=== PATIENT | male | born 1950 | race Caucasian/White ===

== ENCOUNTER 2016-08-26 05:22 | Observation (INO) | payer OTHER ==
[2016-08-21 09:10] VITALS: BMI 29.0
--- NOTE | 2016-08-21 09:46 | PAT Medication Instructions ---
Service Date Aug 21, 2016. Current Home Medication List Amlodipine (Norvasc), 10 MG PO QAM Aspirin (Aspirin Chewable), 81 MG PO QAM Lisinopril/Hctz (Prinzide 20-25MG), 1 TAB PO QAM Lovastatin (Altoprev), 40 MG PO HS Metformin Hcl (Glucophage), 1,000 MG PO BID Nitroglycerin (Nitrostat), 0.4 MG UT PRN Omeprazole (Prilosec), 20 MG PO BID Tramadol (Ultram), 2 TAB PO QID PRN for Pain Medication Instructions For Your Scheduled Surgery - Check with surgeon/chief psychology for instructions: Aspirin (Aspirin Chewable), 81 MG PO QAM - Hold the following medications 48 hours prior to surgery: Metformin Hcl (Glucophage), 1,000 MG PO BID - Hold the following medications the morning of surgery: Lisinopril/Hctz (Prinzide 20-25MG), 1 TAB PO QAM - Take the following medications the morning of surgery with a sip of water: Omeprazole (Prilosec), 20 MG PO BID Nitroglycerin (Nitrostat), 0.4 MG UT PRN Amlodipine (Norvasc), 10 MG PO QAM Tramadol (Ultram), 2 TAB PO QID PRN for Pain (okay to take up to 4 hours prior to surgery if needed) - Take the following medications as scheduled the night before surgery: Nitroglycerin (Nitrostat), 0.4 MG UT PRN Lovastatin (Altoprev), 40 MG PO HS Tramadol (Ultram), 2 TAB PO QID PRN for Pain If you have any questions please call us at [phone] (Eleanor Santiago PA-C) or [phone] or [phone]
[2016-08-21 10:07] LABS: BASO % 0.6 %; BASO ABS # 0.04 K/uL (0-0.2); COMPLETE YES; HEMATOCRIT 41.3 % (42-52); LYMPH ABS # 2.43 K/uL (1.2-3.4); MEAN CELL VOLUME 82.8 fL (80-100); MEAN CORPUSCULAR HEMOGLOBIN 29.9 pg (25-34); MEAN CORPUSCULAR HGB CONC 36.1 g/dl (32-36); MEAN PLATELET VOLUME 11.3 fL (7.4-10.4); MONO % 9.2 %; NEUT % 54.2 %; PLATELET COUNT 229 K/uL (130-400); RED BLOOD COUNT 4.99 M/uL (4.7-6.1); WHITE BLOOD COUNT 7.15 K/uL (4.8-10.8)
--- NOTE | 2016-08-21 10:20 | DIAGNOSTIC IMAGING REPORT ---
CHEST PREADMISSION(PA/LAT) CLINICAL HISTORY: PAT preoperative evaluation COMPARISON STUDY: 12/09/2013 FINDINGS: The bones soft tissues and hemidiaphragms are normal. The cardiomediastinal silhouette is normal. The lungs are clear. The pulmonary vasculature is normal. IMPRESSION: Negative chest. Electronically signed by: Bashir Mullins M.D. 08/21/2016 10:19 AM Dictated Date/Time: 08/21/2016 10:18 AM
[2016-08-21 10:22] LABS: PROTHROMBIN TIME (PATIENT) 10.6 SECONDS (9.0-12.0)
--- NOTE | 2016-08-23 15:15 | HISTORY & PHYSICAL EXAMINATION ---
DATE OF ADMISSION: 08/26/2016 Spinal stenosis surgery with L4-L5 laminectomy. HISTORY OF PRESENT ILLNESS: [place] is a delightful patient, he is 65. He has neurogenic claudication. He has appropriate imaging. He has back, lower extremity difficulty, pain with ambulation, burning and associated nerves alleviated by rest, made worse with activity. No other red flags. He has had assortment of conservative measures for the difficulty. PAST MEDICAL HISTORY: Spine low back issues, acid reflux, hiatal hernia. No kidney, liver issues. No carcinoma. No COPD. SOCIAL HISTORY: A nonalcohol use, minimal tobacco. PAST SURGICAL HISTORY: Hand surgery x2, right shoulder surgery. ALLERGIES: FENTANYL. MEDICATIONS: Tramadol, lisinopril, metformin, lovastatin. REVIEW OF SYSTEMS: He denies any blurred vision, double vision, tinnitus, vertigo. Denies chest pain, orthopnea. Denies nausea, vomiting, urgency, frequency, dysuria. His major complaint is back and lower extremities. OBJECTIVE: GENERAL: He is alert, oriented, pleasant gentleman, mentation normal. VITAL SIGNS: Blood pressure 130/80, pulse of 80, respiratory rate 16, temperature 97.4. HEAD, EYES, EARS, NOSE, AND THROAT: Pupils react to light and accommodation. Ear, nose and throat clear. CARDIAC: Normal S1, S2, no S3. LUNGS: Clear to auscultation. No rales, rhonchi or wheezing. ABDOMEN: Soft and nontender. EXTREMITIES: Intact x4. He has some back and lower extremity difficulties. He has paresthesias. He has no true muscle weakness and no great gross motor deficit. He has slight gait abnormality. His images reviewed in detail. He has some stenosis of the spine L4-L5. He also has a disc protrusion at L4-L5. ASSESSMENT: Disc protrusion, stenosis lumbar spine. DISPOSITION: Surgery is going to involve L4-L5 discectomy and laminectomy. No fusion required. I believe this hospital stay will be approximately 24 hours to 30 hours.
[~2016-08-26] VITALS: Ht 177.8 cm; Wt 91.2 kg
[2016-08-26] VITALS (9 sets, daily range): BP systolic 118–165; BP diastolic 66–90; PULSE 67–96; TEMP 36.3–36.6; O2SAT 93–99; Ht 177.8 cm; Wt 91.2 kg
[~2016-08-26 05:22] MED LIST: AMLO-114 PO; ASPCH81X PO; LISI20TA55 PO; LOVA40TA55 PO; METF1000 PO; NITR0.4S UT; PRLSR20 PO; TRAM-10 PO
[2016-08-26] MEDS ORDERED: NSS 1000ML IV SCH (06:00)
[2016-08-26] MEDS ORDERED: CEFAZOLIN 2000 MG/60 ML D5W 60 ML IV SCH (06:00)
[2016-08-26] MEDS ORDERED: LACTATED RINGER'S 1000ML 1,000 ML IV SCH (06:00)
[2016-08-26] MEDS ORDERED: ROCURONIUM BROMIDE 10 MG/ML 5 ML VIAL ONE ×2 (06:25→08:00)
[2016-08-26] MEDS ORDERED: GLYCOPYRROLATE INJ 0.2 MG/ML VIAL ONE ×2 (06:25→08:38)
[2016-08-26] MEDS ORDERED: NEOSTIGMINE METHYLSULFATE 5 MG/5 ML SYR ONE (06:25)
[2016-08-26] MEDS ORDERED: DEXAMETHASONE SOD INJ 4 MG/ML VIAL ONE (06:25)
[2016-08-26] MEDS ORDERED: LIDOCAINE HCL 2% 2 ML VIAL (20MG/ML) ONE (06:25)
[2016-08-26] MEDS ORDERED: ONDANSETRON INJ 2 MG/ML 2 ML VIAL ONE (06:25)
[2016-08-26] MEDS ORDERED: PROPOFOL IV EMULSION 10 MG/ML 20 ML VIAL IV ONE (06:25)
[2016-08-26] MEDS ORDERED: FENTANYL CITRATE INJ 50 MCG/1 ML 2 ML VIAL ONE (06:26)
[2016-08-26] MEDS ORDERED: MIDAZOLAM HCL 1 MG/ML 2ML VIAL ONE (06:26)
[2016-08-26] MEDS ORDERED: THROMBIN FOR SOLN 20000 UNIT KIT ONE (06:56)
[2016-08-26] MEDS ORDERED: BUPIVACAINE/EPINEPHRINE 0.5% MPF 1:200,000 30 ML VIAL ONE (06:57)
[2016-08-26] MEDS ORDERED: GELATIN SPONGE SZ 100 ONE (06:57)
[2016-08-26] MEDS ORDERED: VANCOMYCIN HCL 1000MG/20ML VIAL ONE (06:58)
[2016-08-26] MEDS ORDERED: HYDROmorphone INJ 2 MG/ML SYR/VIAL ONE ×2 (07:05→07:50)
[2016-08-26] MEDS ORDERED: SODIUM CHLORIDE 0.9% INJ 10 ML VIAL ONE (07:05)
[2016-08-26] MEDS ORDERED: MEPERIDINE HCL 25 MG/ML CARP IV PRN (07:15)
[2016-08-26] MEDS ORDERED: MoRPHine SULFATE 10 MG/ML CARP/VIAL IV PRN (07:15)
[2016-08-26] MEDS ORDERED: ONDANSETRON INJ 2 MG/ML 2 ML VIAL IV PRN ×2 (07:15→09:15)
[2016-08-26] MEDS ORDERED: ATROPINE SULFATE 0.1 MG/ML 5ML SYR IV PRN (07:15)
[2016-08-26] MEDS ORDERED: PHENYLEPHRINE 100MCG/ML 5ML SYR IV PRN (07:15)
[2016-08-26] MEDS ORDERED: NALOXONE HCL 0.4 MG/1 ML VIAL/CARP IV PRN (07:15)
[2016-08-26] MEDS ORDERED: FLUMAZENIL 0.1 MG/1 ML 10 ML VIAL IV PRN (07:15)
[2016-08-26] MEDS ORDERED: EpHEDrine SULFATE INJ 50 MG/ML AMP IV PRN (07:15)
[2016-08-26] MEDS ORDERED: LABETALOL HCL IV 5 MG/ML 20ML IV PRN (07:15)
[2016-08-26] MEDS ORDERED: HYDROmorphone INJ 1 MG/ML SYR IV PRN (07:15)
--- NOTE | 2016-08-26 07:21 | History & Physical Bridge Note ---
H&P Re-Evaluation Bridge Note: I have examined the patient, reviewed the History & Physical and in the interval since the performance of the History & Physical I have noted the following changes of clinical significance: Removal of mole on skin. Brandon Hall
[2016-08-26] MEDS ORDERED: EpHEDrine SULFATE 50MG/5ML SYR ONE (08:10)
[2016-08-26] MEDS ORDERED: METOPROLOL TARTRATE 1 MG/ML VIAL ONE (08:21)
[2016-08-26] MEDS ORDERED: THROMBIN FOR SOLN 20000 UNIT KIT TOP ONE (08:39)
[2016-08-26] MEDS ORDERED: BACITRACIN 50000 UNIT VIAL IR ONE (08:39)
[2016-08-26] MEDS ORDERED: BUPIVACAINE/EPINEPHRINE 0.5% MPF 1:200,000 30 ML VIAL INJ ONE (08:39)
[2016-08-26] MEDS ORDERED: VANCOMYCIN HCL 1000MG/20ML VIAL TOP ONE (08:39)
--- NOTE | 2016-08-26 09:12 | [facility] Post Operative Brief Note ---
Immediate Operative Summary Operative Date Aug 26, 2016. Pre-Operative Diagnosis Disc protrusion, stenosis lumbar spine Post-Operative Diagnosis Disc protrusion, stenosis lumbar spine Procedure(s) Performed L4-L5 Laminectomy, Removal of skin mole Surgeon Dr. Hall Anatomy Teacher Surgeon(s) DELON Garcia Estimated Blood Loss 100ml Findings stenosis, mole Specimens none per surgeon Complication(s) None Disposition Recovery Room / PACU
[2016-08-26] MEDS ORDERED: ACETAMINOPHEN 325 MG TAB PO PRN (09:15)
[2016-08-26] MEDS ORDERED: NITROGLYCERIN 0.4 MG SL PER TAB CHARGE UT PRN (09:15)
[2016-08-26] MEDS ORDERED: HYDROmorphone INJ 2 MG/ML SYR/VIAL IV PRN (09:15)
[2016-08-26] MEDS ORDERED: METOCLOPRAMIDE HCL INJ 5 MG/ML 2 ML VIAL IV PRN (09:15)
[2016-08-26] MEDS ORDERED: OXYCODONE/ACETAMINOPHEN 5-325 TAB PO PRN (09:15)
[2016-08-26] MEDS ORDERED: PROMETHAZINE HCL INJ 12.5 MG in SODIUM CHLORIDE 0.9% 50ML 50 ML IV PRN (09:15)
[2016-08-26] MEDS ORDERED: LORAZEPAM INJ 1 MG in SYRINGE 0 ML IV PRN (09:15)
[2016-08-26] MEDS ORDERED: MAGNESIUM HYDROXIDE SUSP 30 ML UDC PO PRN (09:15)
[2016-08-26] MEDS ORDERED: LORAZEPAM 1 MG TAB PO PRN (09:15)
[2016-08-26] MEDS ORDERED: HYDROmorphone INJ 1 MG/ML SYR ONE (09:21)
--- NOTE | 2016-08-26 09:25 | OPERATIVE REPORT ---
DATE OF OPERATION: 08/26/2016 PREOPERATIVE DIAGNOSIS: Spinal stenosis, lumbar spine L4-L5. Also, a mole on his dorsal spine. POSTOPERATIVE DIAGNOSIS: Same. PROCEDURES: Include removal small mole dorsal spine and lumbar spine laminectomy, foraminotomy, partial facetectomy, decompression of the spine lamina 4 and 5. COMPLICATIONS: Zero. BLOOD LOSS: 100 mL SPECIMENS 0. Sponge and needle counts correct at the close of the procedure. DESCRIPTION OF PROCEDURE: The patient was taken to the operating room, a general intubated anesthetic provided to the patient, placed prone, scrubbed, prepped and draped sterile. We made a small elliptical incision over a small mole in the thoracic spine. No specimens obtained. This was irrigated and closed with 3-0 nylon suture. We then went to the lumbar spine, made a skin incision, fascial incision, put in deep self-retaining retractors, we used C-arm guidance to measure the area. We decompressed the spine, L4-L5, foraminotomies, partial facetectomies. Moved a lot of ligamentum flavum, hypertrophy. We then completed. I was pleased with the freedom of the nerve roots. We irrigated and closed with Vicryl suture, 3-0 on the skin, sterile dressing applied. Also closed over vancomycin powder and a Hemovac drain. Sterile dressings applied. The patient returned to PACU stable. No complications. BLOOD LOSS: 100 mL I attest to the content of the Intraoperative Record and any orders documented therein. Any exceptio ns are noted below.
--- NOTE | 2016-08-26 09:35 | DIAGNOSTIC IMAGING REPORT ---
INTRAOPERATIVE RADIOGRAPH CLINICAL HISTORY: L4-L5 laminectomy. Fluoroscopy time: 1 seconds. FINDINGS: A single spot fluoroscopic view of the lower lumbar spine is presented. A surgical probe projects posteriorly at the level of L5. IMPRESSION: Intraoperative image of the lower lumbar spine as above. See operative report for detailed findings. Electronically signed by: Evelio Wilkerson M.D. 08/26/2016 9:34 AM Dictated Date/Time: 08/26/2016 9:33 AM
--- NOTE | 2016-08-26 09:53 | Anesthesiology Progress Note ---
Anesthesia Post Op Note Date & Time Aug 26, 2016 at 09:53 Vital Signs Pain Intensity: 3 Vital Signs Past 12 Hours Date Time Temp Pulse Resp B/P Pulse Ox O2 Delivery O2 Flow Rate FiO2 08/26/16 09:40 36.3 83 14 109/71 99 Nasal Cannula 2 08/26/16 09:30 78 20 126/79 99 Nasal Cannula 4 08/26/16 09:20 77 21 111/65 98 Nasal Cannula 4 08/26/16 09:10 36.4 96 16 145/79 98 Mask 10 08/26/16 05:48 36.6 71 20 131/88 96 Room Air Notes Mental Status: alert / awake / arousable, participated in evaluation Pt Amnestic to Procedure: Yes Nausea / Vomiting: adequately controlled Pain: adequately controlled Airway Patency, RR, SpO2: stable & adequate BP & HR: stable & adequate Hydration State: stable & adequate Anesthetic Complications: no major complications apparent
[2016-08-26] MEDS ORDERED: IV FLUIDS COMPLETED PRN (10:30)
[2016-08-26] MEDS: KETOROLAC TROMETHAMINE 15 MG/ML VIAL IV. SCH ×2 (11:27→17:45)
[2016-08-26] MEDS: SODIUM CHLORIDE 0.9% 1000ML 1,000 ML IV SCH (11:28)
[2016-08-26] MEDS: OXYCODONE/ACETAMINOPHEN 5-325 TAB PO PRN (13:34)
[2016-08-26] MEDS: CEFAZOLIN IV 2,000 MG in DEXTROSE 5% 50ML 50 ML IV SCH (15:22)
[2016-08-26] MEDS: HYDROmorphone INJ 1 MG/ML SYR IV PRN ×2 (15:23→20:44)
[2016-08-26] MEDS: PANTOprazole SOD 40 MG TAB PO SCH (20:38)
[2016-08-26] MEDS ORDERED: LOVASTATIN 20 MG TAB PO SCH (21:00)
[2016-08-27] VITALS: BP 119/67; PULSE 90
[2016-08-27] MEDS: SODIUM CHLORIDE 0.9% 1000ML 1,000 ML IV SCH (00:05)
[2016-08-27] MEDS: CEFAZOLIN IV 2,000 MG in DEXTROSE 5% 50ML 50 ML IV SCH ×2 (00:05→08:07)
[2016-08-27] MEDS: KETOROLAC TROMETHAMINE 15 MG/ML VIAL IV. SCH ×2 (00:05→05:20)
[2016-08-27 03:12] VITALS: BP 122/67; PULSE 80; TEMP 36.9; O2SAT 96
[2016-08-27] MEDS ORDERED: BISACODYL 10 MG SUPP PR PRN (06:00)
[2016-08-27] MEDS ORDERED: BISACODYL 5 MG TABEC PO PRN (06:00)
[2016-08-27 07:22] VITALS: BP 138/69; PULSE 84; TEMP 36.8; O2SAT 96
--- NOTE | 2016-08-27 07:29 | Discharge Instructions ---
Discharge Instructions Admission Reason for Admission: Spinal Stenosis Discharge Discharge Diagnosis / Problem: stenosis Discharge Goals Goal(s): Improve function Activity Recommendations Activity Limitations: as noted below Lifting Limitations: until after follow-up appointment Exercise/Sports Limitations: until after follow-up appointment May Resume Sexual Activity: after follow-up appointment Shower/Bathe: keep incision dry Driving or Machine Use: home, rest ,recover . Current Hospital Diet Patient's current hospital diet: Diabetes Type 2 Diet Discharge Diet Recommended Diet: Regular Diet Procedures Procedures Performed: L4-L5 Laminectomy, Removal of skin mole Pending Studies Studies pending at discharge: no Medical Emergencies . Who to Call and When: Medical Emergencies: If at any time you feel your situation is an emergency, please call 911 immediately. . Non-Emergent Contact Non-Emergency issues call your: Surgeon Call Non-Emergent contact if: temperature is above 101.5, your pain is worsening, you have any medication questions . "Provider Documentation" section prepared by Brandon Hall. VTE Core Measure Inpt VTE Proph given/why not?: Treatment not indicated
--- NOTE | 2016-08-27 07:38 | DISCHARGE SUMMARY ---
SUBJECTIVE: Minimal complaints of pain. Alert, oriented, some indigestion, no chest pain, shortness of breath, no calf tenderness. OBJECTIVE: Vital signs stable. Neurologically intact. ASSESSMENT: Status post laminectomy of lumbar spine. We will get him up and ambulatory today, dressing change, pull his drain, discontinue his TEDs, support hose, and IV fluids, tentative discharge around lunch time today. He has instructions and precautions from the office. He should wear his back brace by and large when he is up and ambulatory. Follow up in 10 days and a prescription for oxycodone on his chart.
[2016-08-27] MEDS: PANTOprazole SOD 40 MG TAB PO SCH (08:36)
[2016-08-27] MEDS ORDERED: POLYETHYLENE (MIRALAX) 17 GM PACK PO SCH (09:00)
[2016-08-27] MEDS ORDERED: AMLODIPINE BESYLATE 5 MG TAB PO SCH (09:00)
[2016-08-27] MEDS ORDERED: LISINOPRIL/HCTZ 20/25MG TAB PO SCH (09:00)
[2016-08-27] MEDS ORDERED: ASPIRIN 81 MG ECTAB PO SCH (09:00)
[2016-08-27] MEDS ORDERED: METFORMIN HCL 500 MG TAB PO SCH (09:00)
[2016-08-27 09:13] VITALS: BP 138/69; PULSE 84; TEMP 36.8; O2SAT 96
[2016-08-27] MEDS: OXYCODONE/ACETAMINOPHEN 5-325 TAB PO PRN (10:00)
[2016-08-27] MEDS ORDERED: TRAMADOL HCL 50 MG TAB PO PRN (11:00)
[2016-08-27] MEDS ORDERED: NURSING VERBAL MED ORDER ONE (11:00)
--- NOTE | 2016-08-29 11:57 | EDITING REQUIRED CODING QUERY ---
MOLE SIZE Please provide below the size of the mole that was removed during the spinal surgery in centimeters: 2 mm MOLE SIZE: CM Thank you for your assistance, Cathie Corral - Business Assistant
== END 2016-08-27 12:27 | disposition home or self-care (01) ==
LOC: ENRESERVDT → ENRESERVTM → C.ACU 05:22 → C.3E 07:00
PROVIDERS: ADMIT Orthopaedic Surgery Orthopaedic Surgery of the Spine; ATTEND Orthopaedic Surgery Orthopaedic Surgery of the Spine
DX: M48.06 Spinal stenosis, lumbar region (principal); M51.26 Other intervertebral disc displacement, lumbar region; D22.5 Melanocytic nevi of trunk; F17.200 Nicotine dependence, unspecified, uncomplicated; K21.9 Gastro-esophageal reflux disease without esophagitis; K44.9 Diaphragmatic hernia without obstruction or gangrene

== ENCOUNTER 2018-09-10 06:56 | Inpatient (IN) ==
--- NOTE | 2018-09-02 15:44 | PAT Medication Instructions ---
Medication Instructions Date of Service September 02, 2018 Home Medications amlodipine 10 mg PO QAM aspirin [Aspir-Low] 81 mg PO QAM atorvastatin 40 mg PO PM lisinopril-hydrochlorothiazide 1 tab PO QPM metformin 1,000 mg PO QAM omeprazole 20 mg PO BID tramadol 2 tab PO BID ASK your prescriber and surgeon aspirin [Aspir-Low] 81 mg PO QAM DO NOT take the morning of surgery metformin 1,000 mg PO QAM Take morning of surgery With a small sip of water, OTHERWISE NOTHING TO EAT OR DRINK AFTER MIDNIGHT: amlodipine 10 mg PO QAM omeprazole 20 mg PO BID tramadol 2 tab PO BID (if needed, may be taken up to four hours before surgery) Take evening before surgery lisinopril-hydrochlorothiazide 1 tab PO QPM omeprazole 20 mg PO BID tramadol 2 tab PO BID atorvastatin 40 mg PO PM Other Notes If you have any questions please call us at [phone] or [phone] or [phone] or [phone]
--- NOTE | 2018-09-03 08:26 | Anesthesiology Consultation ---
Date of Service September 03, 2018 Assessment & Plan (1) Encounter for pre-operative examination: Plan: CHECK BSG AM DOS Chart Review Chart Review: Acceptable Risk for Surgery and Patient seen in Pre Admission Testing Teaching & Discussion Instructed NPO after midnight before surgery, except medications with 15 cc of water. Medication instructions provided according to the PAT guidelines. History Surgery Operation Date: 09/10/18 09:50 Proposed Procedures p L4-L5 Posterior Lumbar Interbody Fusion - Brandon Hall DO Height/Weight Height: 5 ft 10 in Weight: 94.5 kg Allergies Allergy/AdvReac Type Severity Reaction Status Date / Time baclofen Allergy Mild AGITIATION Verified 08/28/18 15:18 pregabalin Allergy Mild MADE HIM Verified 08/28/18 15:18 ACT STRANGELY tomato Allergy Mild RASH WITH Verified 08/28/18 15:18 RAW prednisone AdvReac Intermediate PSYCH Verified 08/28/18 15:18 COMPLICATIONS gabapentin AdvReac Mild PYSCH Verified 08/28/18 15:18 ISSUES SHAKY fentanyl AdvReac Unknown ADDICTION Verified 08/28/18 15:18 Poison Jennifer Extract/Poison Allergy Severe HIVES Uncoded 08/28/18 15:18 [place] Extra STAINLESS STEEL AdvReac Severe BODY Uncoded 08/28/18 15:35 REJECTED STAINLESS STEEL Medications Home Medications Medication Instructions Recorded Confirmed Last Taken amlodipine 10 mg PO QAM 08/28/18 08/28/18 Unknown aspirin [Aspir-Low] 81 mg PO QAM 08/28/18 08/28/18 Unknown atorvastatin 40 mg PO PM 08/28/18 08/28/18 Unknown lisinopril-hydrochlorothiazide 1 tab PO QPM 08/28/18 08/28/18 Unknown metformin 1,000 mg PO QAM 08/28/18 08/28/18 Unknown omeprazole 20 mg PO BID 08/28/18 08/28/18 Unknown tramadol 2 tab PO BID 08/28/18 08/28/18 Unknown Past Medical History Medical History Anxiety Asthma A CHILD (NO PROBLEMS NOW) CAD (coronary artery disease) Most recent cath 2010 showed widely patent RCA stent. CKD (chronic kidney disease), stage III Chronic back pain Diabetes mellitus, type 2 A1C 6.7% 09/03 GERD (gastroesophageal reflux disease) Hearing deficit Hyperlipidemia Hypertension Osteoarthritis TIA (transient ischemic attack) 2007, on ASA 81mg Past Family History Family History Sister Family history of diabetes mellitus Past Surgical History Surgical History Cochlear implant status IMPLANTED AND REMOVED (BODY REJECTED THE STAINLESS STEEL) History of adenoidectomy History of cardiac cath 2010 History of endoscopic sinus surgery MULTIPLE X'S History of esophagogastroduodenoscopy (EGD) History of heart artery stent 1 STENT PLACED "A WHILE AGO" History of laminectomy LUMBAR History of myringotomy RT EAR (MULTIPLE X 'S) History of tonsillectomy History of tooth extraction Past Anesthesia History No Hx of Anesthesia Complications and No Family Hx of Anesthesia Complications History of PONV No Motion Sickness Screening History of Motion Sickness: No Social History Smoking Status: Current every day smoker tobacco type: cigarettes Smoking cigarettes per day: 20 CIG DAILY Do You Dip or Chew Tobacco: No Hx Alcohol Use: Yes Alcohol type: beer alcohol intake frequency: a few times a month Hx Substance Use: No substance use type: does not use Exercise / Class Metabolic Activity III < 4 Walking/Shop/Light housework (+SOB, no CP with 1 FOS. Limited by back pain.) Review of Systems Pt denies any recent chest pain, shortness of breath, palpitations, cough, fever or URI. Physical Exam Vital Signs BP: 112/73 P: 69bpm SPO2: 96% RA T: 97.8 F R: 20 ENMT Mouth: + dentures and + edentulous Thyromental Distance: > or= 3.5 Finger Breadths (3.5) Mallampati Class: III Neck normal visual inspection; neck extension not limited Respiratory Auscultation: lungs clear to auscultation bilaterally; no crackles, no rhonchi and no wheezes Cardiovascular Rate/Rhythm: regular rate and regular rhythm Heart Sounds: no murmur Vessels: no carotid bruit Extremities: no edema Testing Electrocardiogram Date: 09/03/18 Findings: + NSR @ (63) Left axis deviation. Inferior infarct, cited on or before 07/08/2005. Chest X-Ray Date: 09/03/18 Findings: + NAD Echocardiogram Date: 05/27/18 EF: 55-59% Examination is adequate to evaluate the referral indication. The left ventricular cavity size is normal. Mild concentric LVH. Left ventricular systolic function is normal. Left ventricular wall motion is normal. Aortic valve is mildly calcified and aortic stenosis is absent. There is trace aortic insufficiency. Laboratory Results 09/03/18 08:55 09/03/18 08:55 Blood Type O Positive 09/03/18 08:55 Antibody Screen NEGATIVE 09/03/18 08:55 PT 10.0 Seconds (9.0-12.0) 09/03/18 08:55 INR 1.0 (0.9-1.1) 09/03/18 08:55 APTT 24.7 Seconds (21.0-31.0) 09/03/18 08:55 Hemoglobin A1c 6.7 % (4.5-5.6) H 09/03/18 08:55 *GFR consistent with pt's known stage III CKD
--- NOTE | 2018-09-03 09:14 | XRay Report ---
XR chest Pre-admission PA/Lat CLINICAL HISTORY: pat preoperative COMPARISON STUDY: 08/21/2016 FINDINGS: The bones soft tissues and hemidiaphragms are normal. The cardiomediastinal silhouette is n ormal. The lungs are clear. The pulmonary vasculature is normal. IMPRESSION: Negative chest. The above report was generated using voice recognition software. It may contain grammatical, syntax or spelling errors. Electronically signed by: Bashir Mullins M.D. 09/03/2018 9:13 AM
[2018-09-03 10:26] LABS: Basophils # (auto) 0.03 K/uL (0-0.2); Basophils % (auto) 0.5 %; Eosinophils # (auto) 0.14 K/uL (0-0.5); Eosinophils % (auto) 2.3 %; Hematocrit (blood only) 43.1 % (42-52); Hemoglobin 14.8 g/dL (14.0-18.0); Immature Granulocytes # (auto) 0.01 K/uL (0.00-0.02); Immature Granulocytes % (auto) 0.2 %; Lymphocytes # (auto) 2.08 K/uL (1.2-3.4); Lymphocytes % (auto) 33.5 %; Mean Corpuscular Hgb Conc 34.3 g/dL (32-36); Mean Corpuscular Volume 83.9 fL (80-100); Mean Platelet Volume 12.2 fL (7.4-10.4); Monocytes # (auto) 0.53 K/uL (0.11-0.59); Monocytes % (auto) 8.5 %; Neutrophils # (auto) 3.42 K/uL (1.4-6.5); Platelet Count 223 K/uL (130-400); RDW Coefficient of Variation 13.6 % (11.5-14.5); RDW Standard Deviation 41.2 fL (36.4-46.3); Red Blood Count 5.14 M/uL (4.7-6.1); White Blood Count 6.21 K/uL (4.8-10.8)
[2018-09-03 10:32] LABS: BUN Creatinine Ratio 18.3 (10-20); Calcium 8.9 mg/dl (8.5-10.1); Creatinine Clr Calc Pharmacy 52.6 ml/min; Est GFR (African American) 52.5; Est GFR (Non-African American) 45.3; Potassium 3.4 mmol/L (3.5-5.1)
[2018-09-03 10:39] LABS: Partial Thromboplastin Time 24.7 Seconds (21.0-31.0)
[2018-09-03 11:05] LABS: Estimated Average Glucose 146 mg/dl
[~2018-09-10 06:56] MED LIST changes: +ACETAMINOPHEN 1000 MG/100 ML IV IV SCH; -AMLO-114 PO; -ASPCH81X PO; +CEFAZOLIN 2000MG 2,000 MG/15 ML SYR IV SCH; -LISI20TA55 PO; -LOVA40TA55 PO; +LR 15ML/HR IV SCH; -METF1000 PO; -NITR0.4S UT; -PRLSR20 PO; +SODIUM CHLORIDE 0.9% 1,000 ML IV SCH; -TRAM-10 PO
--- NOTE | 2018-09-10 09:00 | History and Physical Report ---
DATE OF ADMISSION: 09/10/2018 CHIEF COMPLAINT: Back and lower extremity difficulties, instability of the spine, progressive neurological deficits. He is scheduled for a PLIF procedure L4-L5. PAST MEDICAL HISTORY: Positive for diabetes, high cholesterol, hypertension. PAST SURGICAL HISTORY: Includes herniated disk surgery, cervical spine surgery. ALLERGIES: Negative. FAMILY HISTORY: Negative for diabetes. It is positive for lung carcinoma. SOCIAL HISTORY: , 1 child. No alcohol. Moderate tobacco, 2 packs a day for 50 years. Little activity. REVIEW OF SYSTEMS: Denies any fever, sweats, chills. Admits to some sinus issues. He admits to some chest pain, some shortness of breath, cough, heartburn, admits to memory loss, sleep problems, skin rashes, numbness and tingling, joint pain, stiffness. MEDICATIONS: Lisinopril, hydrochlorothiazide, metformin, tramadol, lovastatin, low dose aspirin and vitamin D. OBJECTIVE: GENERAL: He is alert, oriented gentleman. He is 5 feet 10 inches. He is 94.9 kg. VITAL SIGNS: Blood pressure 130/88, pulse 80, respiration 16. HEENT: Pupils react to light and accommodation. Ear, nose and throat clear. CARDIAC: Normal S1, S2, no S3. LUNGS: Clear to auscultation. No rales, rhonchi, wheezing. ABDOMEN: Soft and nontender. Bowel sounds present in all quadrants. LOWER EXTREMITIES: Intact. He has no gross deficit. His wounds are clean and dry. He has some pain with straight leg raising. He has profound decreased range of motion. He has a gait abnormality and pain with percussion. IMPRESSION: Disc herniation and instability lumbar spine 4-5. PLAN: Includes PLIF procedure L4-L5 lumbar spine.
[2018-09-10] MEDS ORDERED: BACITRACIN INJ 50,000 UNIT VIAL ONE (10:32)
[2018-09-10] MEDS ORDERED: VANCOMYCIN HCL 1000MG/20ML VIAL ONE (10:32)
[2018-09-10] MEDS ORDERED: BUPIVACAINE/EPINEPHRINE 0.5% MPF 1:200,000 30 ML VIAL ONE (10:32)
[2018-09-10] MEDS ORDERED: THROMBIN FOR SOLN 20000 UNIT KIT ONE (10:32)
[2018-09-10] MEDS ORDERED: GELATIN SPONGE SZ 100 ONE (10:32)
[2018-09-10] MEDS ORDERED: PROPOFOL IV EMULSION 10 MG/ML 20 ML VIAL IV ONE (10:49)
[2018-09-10] MEDS ORDERED: NEOSTIGMINE METHYLSULFATE 5 MG/5 ML SYR ONE (10:49)
[2018-09-10] MEDS ORDERED: fentaNYL citrate 100 MCG/2 ML VIAL ONE (10:49)
[2018-09-10] MEDS ORDERED: LIDOCAINE HCL 2% 2 ML VIAL/AMP(20MG/ML) INFIL ONE (10:49)
[2018-09-10] MEDS ORDERED: ONDANSETRON INJ 2 MG/ML 2 ML VIAL ONE (10:49)
[2018-09-10] MEDS ORDERED: HYDROmorphone INJ 2 MG/ML SYR/VIAL ONE (10:49)
[2018-09-10] MEDS ORDERED: MIDAZOLAM HCL 1 MG/ML 2ML VIAL ONE (10:49)
[2018-09-10] MEDS ORDERED: GLYCOPYRROLATE 0.2 MG/ML VIAL ONE (10:49)
--- NOTE | 2018-09-10 10:54 | History & Physical Bridge Note ---
Date of Service September 10, 2018 History & Physical Bridge Note I have examined the patient, reviewed the History & Physical and in the interval since the performance of the History & Physical I have noted the following changes of clinical significance: no changes noted
[2018-09-10] MEDS ORDERED: ATROPINE SULFATE 0.1 MG/ML 10ML SYR IV PRN (11:36)
[2018-09-10] MEDS ORDERED: NALOXONE HCL 0.4 MG/1 ML VIAL/CARP IV PRN (11:36)
[2018-09-10] MEDS ORDERED: LABETALOL HCL IV 5 MG/ML 20ML IV PRN (11:36)
[2018-09-10] MEDS ORDERED: ePHEDrine sulfate 50 MG/ML AMP IV PRN (11:36)
[2018-09-10] MEDS ORDERED: PROMETHAZINE HCL 12.5 MG in SODIUM CHLORIDE 0.9% 50 ML IV PRN (11:36)
[2018-09-10] MEDS ORDERED: ONDANSETRON INJ 2 MG/ML 2 ML VIAL IV PRN ×2 (11:36→15:41)
[2018-09-10] MEDS ORDERED: FLUMAZENIL 0.1 MG/1 ML 10 ML VIAL IV PRN (11:36)
--- NOTE | 2018-09-10 13:04 | Fluoroscopy Report ---
LUMBAR SPINE, INTRAOPERATIVE FLUOROSCOPY HISTORY: L4-5 decompression and fusion. FLUOROSCOPY TIME: 35 seconds. FINDINGS: Intraoperative fluoroscopy was provided for the lumbar spine. A single fluoroscopic spot im age of the lumbar spine demonstrates pedicle screws at L4-L5. The hardware appears intact. IMPRESSION: Fluoroscopy provided for a L4-5 posterior decompression and fusion. Electronically signed by: Marques Gunderson M.D. 09/10/2018 1:02 PM
--- NOTE | 2018-09-10 13:20 | Post Operative Brief Note ---
Immediate Post Op Note v1 Date of Surgery September 10, 2018 Pre & Post Diagnosis Operation Date: 09/10/18 09:50 Pre-Op Diagnosis: LUMBAR DISC HERNIATION L4-L5 Post-Op Diagnosis: LUMBAR DISC HERNIATION L4-L5 Procedure Operation Date: 09/10/18 09:50 Actual Procedures p L4-L5 Posterior Lumbar Interbody Fusion, Interbody Fusion L4-L5(Not Applicable ) - Brandon Hall DO Surgeon Brandon Hall DO On Air Host brittnee Estimated Blood Loss 150 Findings Consistent with Post-Op Diagnosis Drains Hemovac Drain
[2018-09-10] MEDS ORDERED: ESMOLOL HCL INJ 10 MG/ML 10ML VIAL IV ONE (13:49)
[2018-09-10] MEDS: HYDROmorphone INJ 1 MG/ML SYRINGE IV PRN ×8 (14:00→14:44)
--- NOTE | 2018-09-10 14:04 | Operative Report ---
DATE OF OPERATION: 09/10/2018 PREOPERATIVE DIAGNOSES: Instability and stenosis, L4-L5 lumbar spine. POSTOPERATIVE DIAGNOSES: Instability and stenosis, L4-L5 lumbar spine. PROCEDURE: Included posterior lumbar interbody fusion L4-L5 lumbar spine. SURGEON: Dr. Hall. EQUIPMENT OPERATOR/LABORER: David Oconnor PA-C. COMPLICATIONS: No complications. BLOOD LOSS: 150 mL. DESCRIPTION OF PROCEDURE: The patient was taken to the Operating Room and generally intubated. Anesthetic provided to the patient, placed prone, scrubbed, prepped and draped sterile, made a skin incision, fascial incision, coming down on interspace at L4-L5. We decompressed the neural elements, which will be 4 above, 5 below bilaterally. I was very pleased with the amount of decompression. We then safely got pedicle screws into the construct. Two pedicle screws into 4, 2 pedicle screws into 5, vary in length by the SeptRx. The placement was near anatomic. We then retracted the dura over on the left hand side exposing the version disk. We did a complete discectomy. We used the appropriate taj and shaved up to a size 11 putting in an implant by the SeptRx interbody cage, a PEEK cage at this point. The bone graft used was allograft and autograft. We irrigated thoroughly, locked down the construct, bone grafted out of the transverse processes with a combination of allograft and autograft as well. We closed fascia to fascia over Hemovac drain and vancomycin powder with 1 Vicryl suture, 2-0 and 3-0 on the skin, sterile dressing applied. The patient returned to PACU stable. IMPLANTS USED: SeptRx. BONE GRAFT USED: Combination of allograft and autograft. Sponge and needle count correct. I attest to the content of the Intraoperative Record and any orders documented therein. Any exception s are noted below.
--- NOTE | 2018-09-10 14:54 | Anesthesiology Progress Note ---
Date of Service September 10, 2018 Anesthesia Post Procedure Vital Signs Vital Signs: Temp Pulse Resp BP Pulse Ox 09/10/18 14:22 36.4 C L 70 16 110/61 94 09/10/18 13:57 36.3 C L 84 16 121/58 L 99 09/10/18 08:11 37.1 C 72 20 125/75 94 Pain Intensity Lower Back: Pain Intensity: 6 Notes Mental Status: alert / awake / arousable Patient Amnestic to Procedure: Yes Nausea / Vomiting: adequately controlled Pain: adequately controlled Airway Patency, RR, SpO2: stable & adequate BP & HR: stable & adequate Hydration State: stable & adequate Anesthetic Complications: no major complications apparent
[2018-09-10] MEDS ORDERED: HYDROmorphone INJ 0.5 MG/0.5 ML SYR IV PRN (15:41)
[2018-09-10] MEDS ORDERED: MAGNESIUM HYDROXIDE SUSP 30 ML UDC PO PRN (15:41)
[2018-09-10] MEDS ORDERED: OXYCODONE HCL IR 5 MG TAB (IMMEDIATE RELEASE) PO PRN (15:41)
[2018-09-10] MEDS ORDERED: SODIUM CHLORIDE 0.9% 1000ML 1,000 ML IV SCH (16:00)
[2018-09-10] MEDS: METFORMIN HCL 500 MG TAB PO SCH (17:26)
[2018-09-10] MEDS: CEFAZOLIN 2000MG 2,000 MG/15 ML SYR IV SCH (18:41)
[2018-09-10] MEDS: PANTOprazole 40 MG TAB PO SCH (20:08)
[2018-09-10] MEDS: CeleBREX 200 MG CAP PO SCH (20:10)
[2018-09-10] MEDS ORDERED: COUGH DROP (SUGAR FREE) LOZ 24 LOZ/1 BOX BUCCAL ONE (20:17)
[2018-09-10] MEDS ORDERED: DOCUSATE SODIUM/SENNA 50/8.6MG TAB PO SCH (21:00)
[2018-09-10] MEDS ORDERED: LISINOPRIL/HCTZ 20/25MG 1 TAB PO SCH (21:00)
[2018-09-10] MEDS ORDERED: ATORVASTATIN 40 MG TAB PO SCH (21:00)
[2018-09-11] MEDS: CEFAZOLIN 2000MG 2,000 MG/15 ML SYR IV SCH (02:13)
--- NOTE | 2018-09-11 08:03 | Discharge Summary ---
DATE OF DISCHARGE: 09/11/18 OBJECTIVE: He is alert, oriented. Is taking p.o. Ambulatory. Pain well controlled. He had an uneventful 24-hour course. Neurologically intact. ASSESSMENT: Status post reconstructive spine surgery, doing well short run. PLAN: Includes discharge home later this morning. He has prescriptions. He has an appointment. Will change his dressings and he is to call if problems should arise.
--- NOTE | 2018-09-11 08:38 | Anesthesiology Progress Note ---
Date of Service September 11, 2018 Anesthesia Post Procedure Vital Signs Vital Signs: Temp Pulse Pulse Pulse Resp BP BP 09/11/18 06:54 36.4 C L 83 16 127/68 09/11/18 03:52 36.5 C 69 18 110/64 09/10/18 23:38 36.9 C 86 18 121/75 09/10/18 20:11 76 106/67 09/10/18 19:04 36.6 C 71 20 110/68 09/10/18 18:16 36.5 C 69 22 119/74 09/10/18 17:36 09/10/18 17:23 36.4 C L 75 18 114/72 09/10/18 16:16 36.5 C 75 22 116/63 09/10/18 15:46 36.4 C L 82 20 104/76 09/10/18 15:20 37.0 C 75 16 102/62 09/10/18 15:02 71 20 09/10/18 15:01 74 17 117/65 09/10/18 15:00 72 8 L 09/10/18 14:56 70 9 L 115/71 09/10/18 14:55 75 14 09/10/18 14:51 83 18 118/74 09/10/18 14:50 81 24 09/10/18 14:46 76 19 110/61 09/10/18 14:45 77 12 09/10/18 14:40 72 18 107/63 09/10/18 14:36 75 14 93/60 L 09/10/18 14:35 74 17 09/10/18 14:31 75 13 98/59 L 09/10/18 14:30 73 19 09/10/18 14:25 69 11 L 110/61 09/10/18 14:22 36.4 C L 70 16 110/61 09/10/18 14:21 72 11 L 102/59 L 09/10/18 14:20 71 10 L 09/10/18 14:16 70 8 L 98/50 L 09/10/18 14:15 73 24 09/10/18 14:11 76 16 101/52 L 09/10/18 14:10 75 13 09/10/18 14:06 75 13 121/67 09/10/18 14:05 76 16 09/10/18 14:00 74 15 129/75 09/10/18 13:57 36.3 C L 84 16 121/58 L 09/10/18 13:56 71 9 L 115/63 09/10/18 13:55 73 14 09/10/18 13:51 72 11 L 111/57 L 09/10/18 13:50 81 17 09/10/18 13:47 73 19 09/10/18 13:46 74 13 99/48 L 09/10/18 13:44 75 15 97/49 L 09/10/18 13:43 73 23 Pulse Ox 09/11/18 06:54 95 09/11/18 03:52 92 09/10/18 23:38 93 09/10/18 20:11 09/10/18 19:04 94 09/10/18 18:16 97 09/10/18 17:36 97 09/10/18 17:23 96 09/10/18 16:16 96 09/10/18 15:46 96 09/10/18 15:20 95 09/10/18 15:02 93 09/10/18 15:01 95 09/10/18 15:00 92 09/10/18 14:56 91 09/10/18 14:55 93 09/10/18 14:51 92 09/10/18 14:50 92 09/10/18 14:46 94 09/10/18 14:45 94 09/10/18 14:40 94 09/10/18 14:36 94 09/10/18 14:35 93 09/10/18 14:31 95 09/10/18 14:30 96 09/10/18 14:25 94 09/10/18 14:22 94 09/10/18 14:21 93 09/10/18 14:20 94 09/10/18 14:16 100 09/10/18 14:15 99 09/10/18 14:11 99 09/10/18 14:10 98 09/10/18 14:06 99 09/10/18 14:05 98 09/10/18 14:00 100 09/10/18 13:57 99 09/10/18 13:56 100 09/10/18 13:55 99 09/10/18 13:51 100 09/10/18 13:50 99 09/10/18 13:47 99 09/10/18 13:46 99 09/10/18 13:44 98 09/10/18 13:43 100 Pain Intensity Lower Back: Pain Intensity: 5 Notes Mental Status: alert / awake / arousable and participated in evaluation Patient Amnestic to Procedure: Yes Nausea / Vomiting: adequately controlled Pain: adequately controlled Airway Patency, RR, SpO2: stable & adequate BP & HR: stable & adequate Hydration State: stable & adequate Anesthetic Complications: no major complications apparent and Pt Satisfied with anesthetic care
[2018-09-11] MEDS ORDERED: AMLODIPINE BESYLATE 5 MG TAB PO SCH (09:00)
[2018-09-11] MEDS ORDERED: ASPIRIN 81 MG ECTAB PO SCH (09:00)
[2018-09-11] MEDS: METFORMIN HCL 500 MG TAB PO SCH (09:36)
[2018-09-11] MEDS: CeleBREX 200 MG CAP PO SCH (09:37)
[2018-09-11] MEDS: PANTOprazole 40 MG TAB PO SCH (09:37)
== END 2018-09-11 11:35 | disposition home or self-care (01) ==
LOC: ASU 06:56 → 3E 15:22

== ENCOUNTER 2023-03-30 04:11 | Inpatient (IN) ==
[2023-03-30] MEDS ORDERED: SODIUM CHLORIDE 0.9% 1,000 ML IV SCH ×2 (04:45→16:30)
[2023-03-30] MEDS ORDERED: SODIUM CHLORIDE 0.9% 2,000 ML IV ONE (04:57)
[2023-03-30 05:07] LABS: Hematocrit (blood only) 35.3 % (42.0-52.0); Hemoglobin 11.3 g/dl (14.0-18.0); Mean Corpuscular Hemoglobin 24.9 pg (25.0-34.0); Mean Corpuscular Volume 77.9 fL (80.0-100.0); RDW Coefficient of Variation 20.8 % (11.5-14.5); RDW Standard Deviation 57.1 fL (36.4-46.3); Red Blood Count 4.53 M/uL (4.70-6.10); White Blood Count 7.18 K/ul (4.8-10.8)
[2023-03-30 05:16] LABS: Platelet Count 202 K/uL (130-400)
[2023-03-30 05:20] LABS: Albumin Globulin Ratio 1.5 (0.9-2); BUN Creatinine Ratio 18.4 (10-20); Bilirubin,Total 0.3 mg/dl (0.2-1.0); Calcium 8.8 mg/dl (8.6-10.3); Creatinine Clr Calc Pharmacy 50.1 ml/min; Est GFR (African American) 52.3 ml/min; Est GFR (Non-African American) 45.1 ml/min; Globulin 2.6 gm/dl (2.5-4.0); Potassium 3.9 mmol/L (3.5-5.1); Total Protein 6.6 gm/dl (6.0-8.3)
[2023-03-30 05:20] LABS: iSTAT Creatinine 1.5 mg/dl (0.6-1.3); iSTAT Hemoglobin 10.2 g/dl (14.0-18.0); iSTAT Ionized Calcium 1.13 mmol/l (1.12-1.32)
--- NOTE | 2023-03-30 05:20 | Emergency Department Note ---
Impression & Plan Acute GI bleeding, Acute hypotension Admit to the [facility] ED Provider Note NAME: IVONNE HALL AGE: 72 SEX: M ARRIVES VIA: Walk-In INFORMANT: [Patient] and his ED PROVIDER(S): Gris Gil DO CHIEF COMPLAINT: Abdominal pain and rectal bleeding PLAN: Disposition: Admit to the [facility] Condition: Guarded MEDICAL DECISION MAKING: This is a 72-year-old male patient who describes having some rectal bleeding over the past 1 week. He saw his PCP who scheduled him to have a colonoscopy but that could not be scheduled until June of this year. Patient states that the rectal bleeding has become heavier since and he is now developed abdominal pressure throughout the day today and tonight, the rectal bleeding significantly intensified. Upon presentation to the ER, the patient was pale, diaphoretic and weak. The patient had melena. I-STAT testing was done which showed hemoglobin of 10.2/hematocrit of 30. BUN of 26 and creatinine of 1.5. Glucose was 139. Patient had 2 large-bore IV locks initiated when his blood pressure dipped as low as 62 systolically. He received 2 L of IV normal saline under pressure. He was typed and screened. While in the emergency department, he had no bloody stools. He refused rectal examination stating that he is passing large amounts of blood and no stool. He denies ever having a colonoscopy stating that real men do not do such things. I reviewed his CODE STATUS with him and his . He was adamant that he did not want to be resuscitated. He would however go through with colonoscopy if offered to him during this admission. I discussed the case with the [facility] and he will evaluate for further management. Triage Nursing notes reviewed and agree with them. [Additional history obtained from] his is at the bedside Vital Signs: reviewed and remarkable for profound hypotension Differential diagnosis: Colitis, diverticulitis, anemia, lower GI bleeding, upper GI bleeding, liver disease ER treatment provided: conveyor monitor Twelve-lead EKG Supplemental oxygen IV normal saline bolus x2 L Diagnostics interpreted by me: ECG: Normal sinus rhythm with PVCs at a rate of 78; extremely poor baseline which made it difficult to interpret Repeat ECG: Normal sinus rhythm at a rate of 69 with PVCs. There is no ST segment elevation or signs of ischemia. Cardiac Monitoring: Normal sinus rhythm at 72 Laboratory studies: [See below] [] HPI: 72/M arrives for evaluation of rectal bleeding. Patient developed some rectal bleeding approximately week ago. He followed up with his PCP who was able to schedule him for a colonoscopy in June. The patient developed some abdominal pressure 3 days ago and much heavier rectal bleeding tonight. Patient only takes aspirin and no other blood thinners. He has never had a colonoscopy before. PAST MEDICAL HISTORY:Diabetes, hypertension; see below PAST SURGICAL HISTORY:[See Below] FAMILY HISTORY:[See Below] SOCIAL HISTORY:[See Below] HOME MEDICATIONS:See list ALLERGIES:See list VITALS:[See Below] PHYSICAL EXAMINATION: HEENT: Head - normocephalic and atraumatic. Pupils are equal, round, and reactive to light. Extraocular eye muscles are intact, and sclera are anicteric. Nose - moist nasal mucosa without discharge. Mouth - moist buccal mucosa. Oropharynx is nonerythematous and there is no tonsillar exudate or edema noted. Neck: Supple; no cervical lymphadenopathy appreciated. Heart: Regular rate and rhythm. There is a normal S1 and S2 with no murmurs, clicks, or gallops appreciated. Lungs: Clear to auscultation bilaterally with no wheezes, rales, or rhonchi. Abdomen: Soft, completely nontender, nondistended, with hyperactive bowel sounds. There are no palpable pulsatile masses or hepatosplenomegaly. There is no guarding, rigidity, or rebound noted. Extremities: No evidence of cyanosis, clubbing, or edema. There are easily palpable peripheral pulses. Skin: Pale, warm and diaphoretic with good turgor and no rashes. ED COURSE: Times/Reassessments: 445 the patient was evaluated in room C2. A complete history and physical was performed. The patient was significantly hypotensive upon my initial evaluation. Multiple nurses joined me in the room. 2 large- bore IV locks were initiated. An order was placed for continuous cardiac monitoring. The patient was in a normal sinus rhythm at a rate of 72. He was bolused with 2 L of normal saline solution to support his blood pressure. He was typed and screened. A twelve-lead EKG was obtained. I-STAT labs were obtained. I discussed CODE STATUS with the patient and his . Patient's blood pressure rebounded with the crystalloid therapy. I discussed the case with the [facility] and he will evaluate for further management. I have personally spent greater than 50 minutes of critical care time in the direct management of this patient. This includes bedside care, interpretation of diagnostic studies, and testing, discussion with consultants, patient, and family members, and other required patient management activities. This 50 minutes is in excess of all separately billable procedures. Gris Gil DO Past Med/Surg History Medical History (Updated 03/30/23 @ 18:31 by Gris Gil DO) Anxiety Asthma A CHILD (NO PROBLEMS NOW) CAD (coronary artery disease) Most recent cath 2010 showed widely patent RCA stent. Chronic back pain CKD (chronic kidney disease), stage III Diabetes mellitus, type 2 A1C 6.7% 09/03 GERD (gastroesophageal reflux disease) Hearing deficit Hyperlipidemia Hypertension Osteoarthritis TIA (transient ischemic attack) 2007, on ASA 81mg Surgical History Cochlear implant status IMPLANTED AND REMOVED (BODY REJECTED THE STAINLESS STEEL) History of adenoidectomy History of cardiac cath 2010 History of endoscopic sinus surgery MULTIPLE X'S History of esophagogastroduodenoscopy (EGD) History of heart artery stent 1 STENT PLACED "A WHILE AGO" History of laminectomy LUMBAR History of myringotomy RT EAR (MULTIPLE X 'S) History of tonsillectomy History of tooth extraction Family History Sister Family history of diabetes mellitus Social History Smoking Status: Former smoker Cigarettes Per Day: 20 CIG DAILY; Second Hand Exposure: Yes; Do You Dip or Chew Tobacco: No; Hx Alcohol Use: No Hx Substance Use: No Preferred Language: Syriac Communication Ability: Effective 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 Beliefs That Will Affect Care: None Current Living Situation: Spouse Feels Safe at Home: Yes Safety Concerns: Feels Safe At This Time Assistive Devices: Denture - Upper, Denture - Lower, Glasses and Hearing Aid - Right Allergies Allergies Allergy/AdvReac Type Severity Reaction Status Date / Time baclofen Allergy Mild AGITIATION Verified 01/15/19 10:37 pregabalin Allergy Mild MADE HIM Verified 01/15/19 10:37 ACT STRANGELY tomato Allergy Mild RASH WITH Verified 01/15/19 10:37 RAW prednisone AdvReac Intermediate PSYCH Verified 01/15/19 10:37 COMPLICATIONS gabapentin AdvReac Mild PYSCH Verified 01/15/19 10:37 ISSUES SHAKY fentanyl AdvReac Unknown ADDICTION Verified 01/15/19 10:37 oxycodone AdvReac Unknown Verified 03/30/23 07:47 Poison Jennifer Extract/Poison Allergy Severe HIVES Uncoded 01/15/19 10:37 [place] Extra STAINLESS STEEL AdvReac Severe BODY Uncoded 01/15/19 10:37 REJECTED STAINLESS STEEL Home Meds Home Medications Medication Instructions Recorded Confirmed amlodipine 10 mg tablet 10 mg PO QAM 08/28/18 01/15/19 aspirin 81 mg tablet,delayed 81 mg PO QAM 08/28/18 01/15/19 release (Aspir-Low) omeprazole 20 mg tablet,delayed 20 mg PO BID 08/28/18 01/15/19 release tramadol 50 mg tablet 50 mg PO Q6H PRN Pain 08/28/18 01/15/19 clonidine HCl 0.1 mg tablet 0.1 mg PO HS 03/30/23 03/30/23 ipratropium 0.5 mg-albuterol 3 mg 3 ml inhalation Q6H PRN Shortness 03/30/23 03/30/23 (2.5 mg base)/3 mL nebulization Of Breath Or Wheezing soln lisinopril 20 mg tablet 20 mg PO DAILY 03/30/23 03/30/23 lovastatin 40 mg tablet 40 mg PO HS 03/30/23 03/30/23 methocarbamol 500 mg tablet 500 mg PO QID PRN Spasms 03/30/23 03/30/23 ropinirole 4 mg tablet 4 mg PO TID 03/30/23 03/30/23 semaglutide 0.25 mg or 0.5 mg (2 0.5 mg subcut WK 03/30/23 03/30/23 mg/3 mL) subcutaneous pen injector (Ozempic) Results & Data (ED) Vital Signs Vital Signs - 24 hr 03/30/23 04:25 03/30/23 04:37 03/30/23 04:32 Temperature 36.7 C Temperature Source Temporal Artery Scan Pulse Rate 74 75 Pulse Rate from SpO2 Sensor Respiratory Rate 20 Respiratory Effort / Characteristics Non-Labored Respiratory Depth Normal Blood Pressure 86/40 L Blood Pressure Mean 55 Pulse Oximetry 98 94 Oxygen Delivery Method Room Air Room Air Oxygen Flow Rate Sepsis Recent Fever Within 48 Hours No Sepsis New/Unexplained Change in Mental Status N/A Sepsis Action Taken by Nursing No Action Required 03/30/23 04:12 03/30/23 04:37 03/30/23 04:37 Temperature Temperature Source Pulse Rate 72 Pulse Rate from SpO2 Sensor 35 L Respiratory Rate 16 Respiratory Effort / Characteristics Non-Labored Respiratory Depth Normal Blood Pressure 100/57 L Blood Pressure Mean 58 Pulse Oximetry 97 Oxygen Delivery Method Oxygen Flow Rate Sepsis Recent Fever Within 48 Hours Sepsis New/Unexplained Change in Mental Status Sepsis Action Taken by Nursing 03/30/23 04:40 03/30/23 04:47 03/30/23 04:47 Temperature Temperature Source Pulse Rate 70 58 L Pulse Rate from SpO2 Sensor 69 60 Respiratory Rate 17 24 Respiratory Effort / Characteristics Respiratory Depth Blood Pressure Blood Pressure Mean 113 Pulse Oximetry 96 99 Oxygen Delivery Method Oxygen Flow Rate Sepsis Recent Fever Within 48 Hours Sepsis New/Unexplained Change in Mental Status Sepsis Action Taken by Nursing 03/30/23 04:50 03/30/23 04:50 03/30/23 04:51 Temperature Temperature Source Pulse Rate 64 Pulse Rate from SpO2 Sensor 59 L Respiratory Rate 23 Respiratory Effort / Characteristics Respiratory Depth Blood Pressure 72/43 L 69/44 L Blood Pressure Mean 55 45 Pulse Oximetry 99 Oxygen Delivery Method Oxygen Flow Rate Sepsis Recent Fever Within 48 Hours Sepsis New/Unexplained Change in Mental Status Sepsis Action Taken by Nursing 03/30/23 04:51 03/30/23 04:52 03/30/23 04:52 Temperature Temperature Source Pulse Rate 64 71 Pulse Rate from SpO2 Sensor 65 57 L Respiratory Rate 20 19 Respiratory Effort / Characteristics Respiratory Depth Blood Pressure 113/66 Blood Pressure Mean 86 Pulse Oximetry 99 99 Oxygen Delivery Method Oxygen Flow Rate Sepsis Recent Fever Within 48 Hours Sepsis New/Unexplained Change in Mental Status Sepsis Action Taken by Nursing 03/30/23 05:00 03/30/23 05:00 03/30/23 05:10 Temperature Temperature Source Pulse Rate 72 Pulse Rate from SpO2 Sensor 74 Respiratory Rate 34 H Respiratory Effort / Characteristics Respiratory Depth Blood Pressure 129/61 130/63 Blood Pressure Mean 108 103 Pulse Oximetry 96 Oxygen Delivery Method Oxygen Flow Rate Sepsis Recent Fever Within 48 Hours Sepsis New/Unexplained Change in Mental Status Sepsis Action Taken by Nursing 03/30/23 05:10 03/30/23 05:20 03/30/23 05:20 Temperature Temperature Source Pulse Rate 66 63 Pulse Rate from SpO2 Sensor 68 60 Respiratory Rate 18 14 Respiratory Effort / Characteristics Respiratory Depth Blood Pressure 137/69 Blood Pressure Mean 92 Pulse Oximetry 96 96 Oxygen Delivery Method Oxygen Flow Rate Sepsis Recent Fever Within 48 Hours Sepsis New/Unexplained Change in Mental Status Sepsis Action Taken by Nursing 03/30/23 05:30 03/30/23 05:30 03/30/23 05:40 Temperature Temperature Source Pulse Rate 67 Pulse Rate from SpO2 Sensor 67 Respiratory Rate 9 L Respiratory Effort / Characteristics Respiratory Depth Blood Pressure 130/61 122/59 L Blood Pressure Mean 94 86 Pulse Oximetry 99 Oxygen Delivery Method Oxygen Flow Rate Sepsis Recent Fever Within 48 Hours Sepsis New/Unexplained Change in Mental Status Sepsis Action Taken by Nursing 03/30/23 05:40 03/30/23 05:52 03/30/23 05:53 Temperature Temperature Source Pulse Rate 69 85 72 Pulse Rate from SpO2 Sensor 68 Respiratory Rate 13 18 Respiratory Effort / Characteristics Respiratory Depth Blood Pressure Blood Pressure Mean Pulse Oximetry 100 Oxygen Delivery Method Oxygen Flow Rate Sepsis Recent Fever Within 48 Hours Sepsis New/Unexplained Change in Mental Status Sepsis Action Taken by Nursing 03/30/23 05:53 03/30/23 05:56 03/30/23 05:56 Temperature Temperature Source Pulse Rate 68 Pulse Rate from SpO2 Sensor 66 Respiratory Rate 18 Respiratory Effort / Characteristics Respiratory Depth Blood Pressure 176/84 H 166/81 H Blood Pressure Mean 104 120 Pulse Oximetry 99 Oxygen Delivery Method Oxygen Flow Rate Sepsis Recent Fever Within 48 Hours Sepsis New/Unexplained Change in Mental Status Sepsis Action Taken by Nursing 03/30/23 06:00 03/30/23 06:00 03/30/23 06:10 Temperature Temperature Source Pulse Rate 67 Pulse Rate from SpO2 Sensor 70 Respiratory Rate 18 Respiratory Effort / Characteristics Respiratory Depth Blood Pressure 163/83 H 154/64 H Blood Pressure Mean 107 93 Pulse Oximetry 99 Oxygen Delivery Method Oxygen Flow Rate Sepsis Recent Fever Within 48 Hours Sepsis New/Unexplained Change in Mental Status Sepsis Action Taken by Nursing 03/30/23 06:10 03/30/23 06:20 03/30/23 06:20 Temperature Temperature Source Pulse Rate 65 71 Pulse Rate from SpO2 Sensor 64 67 Respiratory Rate 16 27 H Respiratory Effort / Characteristics Respiratory Depth Blood Pressure 144/79 H Blood Pressure Mean 95 Pulse Oximetry 99 99 Oxygen Delivery Method Oxygen Flow Rate Sepsis Recent Fever Within 48 Hours Sepsis New/Unexplained Change in Mental Status Sepsis Action Taken by Nursing 03/30/23 06:30 03/30/23 06:31 03/30/23 06:31 Temperature Temperature Source Pulse Rate 67 Pulse Rate from SpO2 Sensor 61 65 Respiratory Rate 25 H 18 Respiratory Effort / Characteristics Respiratory Depth Blood Pressure 145/64 H Blood Pressure Mean 74 Pulse Oximetry 92 99 Oxygen Delivery Method Nasal Cannula Oxygen Flow Rate 2 Sepsis Recent Fever Within 48 Hours Sepsis New/Unexplained Change in Mental Status Sepsis Action Taken by Nursing 03/30/23 06:40 03/30/23 06:40 03/30/23 06:50 Temperature Temperature Source Pulse Rate 68 Pulse Rate from SpO2 Sensor 63 Respiratory Rate 18 Respiratory Effort / Characteristics Respiratory Depth Blood Pressure 141/76 H 145/78 H Blood Pressure Mean 89 93 Pulse Oximetry 98 Oxygen Delivery Method Oxygen Flow Rate Sepsis Recent Fever Within 48 Hours Sepsis New/Unexplained Change in Mental Status Sepsis Action Taken by Nursing 03/30/23 06:50 03/30/23 07:00 03/30/23 07:00 Temperature Temperature Source Pulse Rate 66 68 Pulse Rate from SpO2 Sensor 63 Respiratory Rate 14 16 Respiratory Effort / Characteristics Respiratory Depth Blood Pressure 140/71 Blood Pressure Mean 99 Pulse Oximetry 98 Oxygen Delivery Method Oxygen Flow Rate Sepsis Recent Fever Within 48 Hours Sepsis New/Unexplained Change in Mental Status Sepsis Action Taken by Nursing Laboratory Data 03/30/23 04:49 03/30/23 04:49 Lab Results 03/30/23 03/30/23 03/30/23 Range/Units 04:49 04:49 04:49 WBC 7.18 (4.8-10.8) K/ul RBC 4.53 L (4.70-6.10) M/uL Hgb 11.3 L (14.0-18.0) g/dl POC Hgb (14.0-18.0) g/dl Hct 35.3 L (42.0-52.0) % POC Hct (42-52) % MCV 77.9 L (80.0-100.0) fL MCH 24.9 L (25.0-34.0) pg MCHC 32.0 (32.0-36.0) g/dL RDW Std Deviation 57.1 H (36.4-46.3) fL RDW Coeff of Emily 20.8 H (11.5-14.5) % Plt Count 202 (130-400) K/uL Immature Gran % (Auto) 0.3 % Neut % (Auto) 63.5 % Lymph % (Auto) 23.0 % [place] % (Auto) 9.6 % Eos % (Auto) 2.8 % Baso % (Auto) 0.8 % Neut # (Auto) 4.56 (1.40-6.50) K/uL Lymph # (Auto) 1.65 (1.20-3.40) K/uL [place] # (Auto) 0.69 H (0.11-0.59) K/uL Eos # (Auto) 0.20 (0.00-0.50) K/uL Baso # (Auto) 0.06 (0.00-0.20) K/uL Immature Gran # (Auto) 0.02 (0.01-0.20) K/uL Polychromasia 2+ Anisocytosis Present PT 10.6 (9.0-12.0) Seconds INR 1.0 (0.9-1.1) APTT 23.7 (21.0-31.0) Seconds PTT Ratio 0.8 POC Sodium (135-144) mmol/L Sodium (136-145) mmol/L POC Potassium (3.3-5.0) mmol/L Potassium (3.5-5.1) mmol/L POC Chloride (101-112) mmol/L Chloride (98-107) mmol/L Carbon Dioxide (21-32) mmol/L POC Total CO2 (24-31) mmol/L Anion Gap (3-11) POC Anion Gap (16-25) mmol/L POC BUN (7-18) mg/dl BUN (6-23) mg/dl Creatinine (0.6-1.4) mg/dl POC Creatinine (0.6-1.3) mg/dl Est Cr Clr Drug Dosing ml/min Est GFR ( Amer) ml/min Est GFR (Non-Af Amer) ml/min BUN/Creatinine Ratio (10-20) Glucose (70-99(Fasting)) mg/dl POC Glucose (other) (70-99) mg/dl Calcium (8.6-10.3) mg/dl POC Ioniz Calcium [place]ip[place] (1.12-1.32) mmol/l Magnesium (1.7-2.4) mg/dl Total Bilirubin (0.2-1.0) mg/dl AST (13-39) U/L ALT (7-52) U/L Alkaline Phosphatase (34-104) U/L Troponin I High Sens (0-20) pg/ml Total Protein (6.0-8.3) gm/dl Albumin (3.4-5.0) gm/dl Globulin (2.5-4.0) gm/dl Albumin/Globulin Ratio (0.9-2) TSH (0.300-4.500) uIu/ml Blood Type O Positive Antibody Screen NEGATIVE Crossmatch See Detail 03/30/23 03/30/23 03/30/23 Range/Units 04:49 04:50 05:07 WBC (4.8-10.8) K/ul RBC (4.70-6.10) M/uL Hgb (14.0-18.0) g/dl POC Hgb 10.2 L (14.0-18.0) g/dl Hct (42.0-52.0) % POC Hct 30 L (42-52) % MCV (80.0-100.0) fL MCH (25.0-34.0) pg MCHC (32.0-36.0) g/dL RDW Std Deviation (36.4-46.3) fL RDW Coeff of Emily (11.5-14.5) % Plt Count (130-400) K/uL Immature Gran % (Auto) % Neut % (Auto) % Lymph % (Auto) % [place] % (Auto) % Eos % (Auto) % Baso % (Auto) % Neut # (Auto) (1.40-6.50) K/uL Lymph # (Auto) (1.20-3.40) K/uL [place] # (Auto) (0.11-0.59) K/uL Eos # (Auto) (0.00-0.50) K/uL Baso # (Auto) (0.00-0.20) K/uL Immature Gran # (Auto) (0.01-0.20) K/uL Polychromasia Anisocytosis PT (9.0-12.0) Seconds INR (0.9-1.1) APTT (21.0-31.0) Seconds PTT Ratio POC Sodium 141 (135-144) mmol/L Sodium 138 (136-145) mmol/L POC Potassium 4.0 (3.3-5.0) mmol/L Potassium 3.9 (3.5-5.1) mmol/L POC Chloride 104 (101-112) mmol/L Chloride 105 (98-107) mmol/L Carbon Dioxide 28 (21-32) mmol/L POC Total CO2 23 L (24-31) mmol/L Anion Gap 5 (3-11) POC Anion Gap 18.0 (16-25) mmol/L POC BUN 26 H (7-18) mg/dl BUN 28 H (6-23) mg/dl Creatinine 1.52 H (0.6-1.4) mg/dl POC Creatinine 1.5 H (0.6-1.3) mg/dl Est Cr Clr Drug Dosing 50.1 ml/min Est GFR ( Amer) 52.3 ml/min Est GFR (Non-Af Amer) 45.1 ml/min BUN/Creatinine Ratio 18.4 (10-20) Glucose 146 H (70-99(Fasting)) mg/dl POC Glucose (other) 139 H (70-99) mg/dl Calcium 8.8 (8.6-10.3) mg/dl POC Ioniz Calcium [place] 1.13 (1.12-1.32) mmol/l Magnesium 1.9 (1.7-2.4) mg/dl Total Bilirubin 0.3 (0.2-1.0) mg/dl AST 28 (13-39) U/L ALT 30 (7-52) U/L Alkaline Phosphatase 95 (34-104) U/L Troponin I High Sens 6.3 (0-20) pg/ml Total Protein 6.6 (6.0-8.3) gm/dl Albumin 4.0 (3.4-5.0) gm/dl Globulin 2.6 (2.5-4.0) gm/dl Albumin/Globulin Ratio 1.5 (0.9-2) TSH 3.958 (0.300-4.500) uIu/ml Blood Type Antibody Screen Crossmatch Administered Medications Ampicillin Sodium/Sulbactam Sodium 3,000 mg/ Sodium Chloride 108 mls @ 200 mls/hr IV Q6H [facility]; Protocol Stop: 04/09/23 14:29 Last Infusion: 03/30/23 15:52 Dose: 0 mls/hr Documented By: Admin: 03/30/23 14:56 Dose: 200 mls/hr Documented By: SARAH Ropinirole HCl (Ropinirole Hcl 2 Mg Tablet) 4 mg PO TID LUIGI Stop: 04/29/23 08:59 Last Admin: 03/30/23 14:55 Dose: 4 mg Documented By: Admin: 03/30/23 11:20 Dose: 4 mg Documented By: SARA Discontinued Medications Acetaminophen (Acetaminophen 325 Mg Tab) 650 mg PO NOW STA Stop: 03/30/23 07:30 Last Admin: 03/30/23 10:47 Dose: Not Given Documented By: SERGIO Sodium Chloride (Nss) 1,000 mls @ 999 mls/hr IV .Q1H1M LUIGI Stop: 03/30/23 05:45 Last Admin: 03/30/23 06:47 Dose: Not Given Documented By: MARLENE Sodium Chloride (Nss) 2,000 mls @ 999 mls/hr IV .Q2H1M ONE Stop: 03/30/23 06:57 Last Infusion: 03/30/23 10:47 Dose: 0 mls/hr Documented By: Admin: 03/30/23 05:05 Dose: 999 mls/hr Documented By: MARLENE Pantoprazole Sodium 80 mg/ (Dextrose) 120 mls @ 480 mls/hr IV ONE STA Stop: 03/30/23 06:38 Last Infusion: 03/30/23 07:02 Dose: 0 mls/hr Documented By: Admin: 03/30/23 06:47 Dose: 480 mls/hr Documented By: MARLENE Magnesium Sulfate/Dextrose (Magnesium Sulfate / D5w) 1 gm in 100 mls @ 50 mls/hr IV ONE ONE Stop: 03/30/23 09:46 Last Infusion: 03/30/23 13:01 Dose: 0 mls/hr Documented By: Admin: 03/30/23 10:48 Dose: 50 mls/hr Documented By: SERGIO Potassium Chloride/Sodium Chloride (Normal Saline W/20 Meq Kcl) 20 meq in 1,000 mls @ 80 mls/hr IV .[id number] ONE; Protocol Stop: 03/30/23 20:17 Last Infusion: 03/30/23 16:43 Dose: 0 mls/hr Documented By: SARAH(2) Admin: 03/30/23 10:48 Dose: 80 mls/hr Documented By: SERGIO Insulin Aspart (Insulin Aspart Per Unit Charge) 0 units SC ACHS LUIGI Stop: 04/29/23 10:08 Last Admin: 03/30/23 16:44 Dose: Not Given Documented By: SARAH(2) Admin: 03/30/23 11:25 Dose: Not Given Documented By: Admin: 03/30/23 11:24 Dose: Not Given Documented By: CUAUHTEMOC Metoprolol Tartrate (Metoprolol Tartrate 25 Mg Tab) 12.5 mg PO BID LUIGI Stop: 04/29/23 08:59 Last Admin: 03/30/23 10:52 Dose: 12.5 mg Documented By: SERGIO Imaging Data Radiologist's Impression: Chest X-Ray 03/30/23 06:27 XR chest 1V portable HISTORY: tachypnea COMPARISON: Chest 10/08/2018. FINDINGS: No pneumothorax. No pleural fusions. No focal lung consolidations to suggest a pneumonia. No evidence for pulmonary edema. The cardiac silhouette remains top normal in size. IMPRESSION: No acute process. ACT 112: Negative or not required by law. Electronically signed by: Marques Gunderson M.D. 03/30/2023 8:00 AM Abdomen/Pelvis CT 03/30/23 07:[address] WITHOUT CONTRAST CT DOSE: 1233.10 mGy.cm HISTORY: Generalized abdominal pain. Rectal bleeding. TECHNIQUE: Multiaxial CT images of the abdomen and pelvis were performed without contrast. A dose lowering technique was utilized adhering to the principles of ALARA. COMPARISON STUDY: Abdomen and pelvis CT 09/10/2013. FINDINGS: Subtle tree-in-bud nodular opacities within the base the right middle lobe. The left lung base is clear. No pneumoperitoneum. No pneumatosis. L4-5 posterior decompression and fusion with pedicle screws and rods. There is a small fat-containing umbilical hernia. Cholelithiasis. No gallbladder wall thickening. The unenhanced liver, adrenal glands, and pancreas are unremarkable. There are few punctate calcified granulomas within the spleen. No renal or ureteral stones. No hydronephrosis. There is a 3 cm hypodense lesion within the left kidney. This is incompletely characters on this noncontrast study but statistically represents a cyst. Moderate calcified plaque within the normal caliber abdominal aorta. No retroperitoneal or pelvic lymphadenopathy. Normal bladder. Extensive colonic diverticulosis. Mild pericolonic fat stranding at the mid descending colon best seen on image 136. This likely represents a mild acute diverticulitis. No perforation or abscess. Normal appendix. No evidence for bowel obstruction. IMPRESSION: 1. Mild acute diverticulitis at the mid descending colon. No perforation or abscess. 2. No evidence for a bowel obstruction. 3. Cholelithiasis. No gallbladder wall thickening. 4. Additional findings as described above. ACT 112: Negative or not required by law. Electronically signed by: Marques Gunderson M.D. 03/30/2023 9:18 AM Discharge Plan Visit Data Chief Complaint: Rectal Bleed Stated Complaint: RECTAL BLEEDING ED Provider: Gris Gil Discharge Problem: Acute GI bleeding, Acute hypotension Patient Disposition: Admitted As Inpatient Discharge Instructions Interventions: ED Discharge Assessment Last Done: 03/30/23 10:09
[2023-03-30 05:24] LABS: Anisocytosis Present; Basophils # (auto) 0.06 K/uL (0.00-0.20); Basophils % (auto) 0.8 %; Eosinophils % (auto) 2.8 %; Immature Granulocytes # (auto) 0.02 K/uL (0.01-0.20); Immature Granulocytes % (auto) 0.3 %; Lymphocytes # (auto) 1.65 K/uL (1.20-3.40); Monocytes # (auto) 0.69 K/uL (0.11-0.59); Monocytes % (auto) 9.6 %; Neutrophils # (auto) 4.56 K/uL (1.40-6.50); Neutrophils % (auto) 63.5 %; Polychromasia 2+
[2023-03-30 05:27] LABS: Troponin I High Sensitivity 6.3 pg/ml (0-20)
[2023-03-30 05:32] LABS: Partial Thromboplastin Ratio 0.8; Partial Thromboplastin Time 23.7 Seconds (21.0-31.0); Prothrombin Time 10.6 Seconds (9.0-12.0)
[2023-03-30] MEDS ORDERED: PANTOprazole 80 MG in DEXTROSE 5% 100 ML IV STA (06:24)
[2023-03-30 06:59] LABS: Magnesium 1.9 mg/dl (1.7-2.4)
--- NOTE | 2023-03-30 07:08 | History & Physical Report ---
Date of Service March 30, 2023 Assessment & Plan (1) GI bleed: Plan: Possible UGIB/LGIB combo with description of bloody/melanotic stools History of Hassan's esophagus/GERD as per records Rule out C. difficile colitis given recent outpatient antibiotic Rx for an ear infection. Hemoglobin currently better than baseline. Initial hypotension at the ER markedly improved after IVF bolus. New onset A-fib on EKG, patient currently NSR hx CAD status post stent valvular heart disease (mild MR/AR) hyperlipidemia on statin Rx DM 2 on Ozempic, well-controlled as of recent outpatient hemoglobin A1c of 5.7 last December 2022 CRI, creatinine at baseline past tobacco abuse PCU given transient hypotension/PAF IV PPI for possible UGIB Stool C. difficile CT abdomen pelvis GI consult Re: GI bleed N.p.o. for now Appropriate to hold aspirin for now given GI bleed Follow H&H, transfuse PRBC if hemoglobin less than 8 and or for symptomatic anemia Check lactic acid hold BP meds for now until lactic acid results known. Initiate beta-colleen for PAF rate control if BP stable and lactic acid within normal limits TTE, Cardiology consult Re: PAF ISS BG goal 1 10-1 40 DVT prophylaxis. SCDs Re: GI bleed DNR Text document was generated using [employer] voice recognition software. It may contain grammatical or spelling errors. Kindly contact undersigned for clarification of any documentation item in question. History of Present Illness Chief Complaint: Abdominal pain, GI bleed Primary Care Provider: Priscila Meza PA-C History obtained from patient and records. Medical history significant for CAD status post stent, valvular heart disease (mild MR/AR), hypertension, hyperlipidemia, DM 2 on Ozempic, CRI (baseline creatinine 1.5), chronic anemia (baseline hemoglobin 8-9), history GERD/Hassan's esophagus as per records, history cochlear implant surgery, past tobacco abuse. Last confinement 2018 under Orthopedics spine service for elective back surgery. Last month, patient had transient episode of hematochezia with lower abdominal pain. No consultations done. Few days ago, patient noted recurrence of bloody watery bowel movement mixed with black stools associated with lower abdominal pain. No fever, no chills, no chest pain, no SOB. Outpatient antibiotic course a few weeks ago for an ear infection. Denies OTC NSAID intake. Patient seen at PCP's office 3 days ago. GI referral for outpatient endoscopy contemplated. Tentative schedule for June 2023. Patient had worsening discomfort and bleeding at home yesterday. No emesis. Dizziness described as lightheadedness, no headache. No syncope. No chest pain, no SOB. SBP 80s upon arrival at the ER. Medical History as above 2011 EGD Esophageal mucosa changes suggestive of Hassan's esophagus Surgical History : Mastoid surgery, tonsillectomy, vasectomy Family History : Kidney disease Personal/Social history : Past tobacco abuse, no EtOH intake, prior racetrack work Allergies Allergy/AdvReac Type Severity Reaction Status Date / Time baclofen Allergy Mild AGITIATION Verified 01/15/19 10:37 pregabalin Allergy Mild MADE HIM Verified 01/15/19 10:37 ACT STRANGELY tomato Allergy Mild RASH WITH Verified 01/15/19 10:37 RAW prednisone AdvReac Intermediate PSYCH Verified 01/15/19 10:37 COMPLICATIONS gabapentin AdvReac Mild PYSCH Verified 01/15/19 10:37 ISSUES SHAKY fentanyl AdvReac Unknown ADDICTION Verified 01/15/19 10:37 oxycodone AdvReac Unknown Verified 03/30/23 07:47 Poison Jennifer Extract/Poison Allergy Severe HIVES Uncoded 01/15/19 10:37 [place] Extra STAINLESS STEEL AdvReac Severe BODY Uncoded 01/15/19 10:37 REJECTED STAINLESS STEEL Home Medications Medication Instructions Recorded Confirmed Type amlodipine 10 mg tablet 10 mg PO QAM 08/28/18 01/15/19 History aspirin 81 mg tablet,delayed 81 mg PO QAM 08/28/18 01/15/19 History release (Aspir-Low) omeprazole 20 mg tablet,delayed 20 mg PO BID 08/28/18 01/15/19 History release tramadol 50 mg tablet 50 mg PO Q6H PRN Pain 08/28/18 01/15/19 History clonidine HCl 0.1 mg tablet 0.1 mg PO HS 03/30/23 03/30/23 History ipratropium 0.5 mg-albuterol 3 mg 3 ml inhalation Q6H PRN Shortness 03/30/23 03/30/23 History (2.5 mg base)/3 mL nebulization Of Breath Or Wheezing soln lisinopril 20 mg tablet 20 mg PO DAILY 03/30/23 03/30/23 History lovastatin 40 mg tablet 40 mg PO HS 03/30/23 03/30/23 History methocarbamol 500 mg tablet 500 mg PO QID PRN Spasms 03/30/23 03/30/23 History ropinirole 4 mg tablet 4 mg PO TID 03/30/23 03/30/23 History semaglutide 0.25 mg or 0.5 mg (2 0.5 mg subcut WK 03/30/23 03/30/23 History mg/3 mL) subcutaneous pen injector (Ozempic) Past Med/Surg History Medical History (Updated 03/30/23 @ 09:41 by Juan Sanches MD) Anxiety Asthma A CHILD (NO PROBLEMS NOW) CAD (coronary artery disease) Most recent cath 2010 showed widely patent RCA stent. Chronic back pain CKD (chronic kidney disease), stage III Diabetes mellitus, type 2 A1C 6.7% 09/03 GERD (gastroesophageal reflux disease) Hearing deficit Hyperlipidemia Hypertension Osteoarthritis TIA (transient ischemic attack) 2007, on ASA 81mg Surgical History Cochlear implant status IMPLANTED AND REMOVED (BODY REJECTED THE STAINLESS STEEL) History of adenoidectomy History of cardiac cath 2010 History of endoscopic sinus surgery MULTIPLE X'S History of esophagogastroduodenoscopy (EGD) History of heart artery stent 1 STENT PLACED "A WHILE AGO" History of laminectomy LUMBAR History of myringotomy RT EAR (MULTIPLE X 'S) History of tonsillectomy History of tooth extraction Family History Sister Family history of diabetes mellitus Social History Smoking Status: Former smoker Cigarettes Per Day: 20 CIG DAILY; Second Hand Exposure: Yes; Do You Dip or Chew Tobacco: No; Hx Alcohol Use: Yes Alcohol type: beer Hx Substance Use: No Preferred Language: Iraqi Communication Ability: Effective Tin Container Straightener Required: No Beliefs That Will Affect Care: None Current Living Situation: Spouse Feels Safe at Home: Yes Assistive Devices: Brace/Splint/Immobilizer, Glasses, Hearing Aid - Right and Walker Review of Systems Review of Systems: As per HPI, all other systems reviewed and negative Physical Exam Physical Exam: GENERAL: Slightly uncomfortable, pleasant, slightly hard of hearing, no respiratory distress SKIN: Pallor, warm HEENT: Alopecia, bespectacled, pale palpebral conjunctivae, no ptosis, dry buccal mucosa NECK : Supple, no tenderness CHEST : CTA, no tenderness HEART : RRR, no obvious murmurs ABDOMEN: Some distention, mid hypogastric tenderness EXTREMITIES : No LE swelling/tenderness, no other conspicuous deformities noted NEUROLOGIC : Coherent, no facial asymmetry, slightly hard of hearing, no other gross focality Results & Data Results & Data Vital Signs (Past 12 Hours) Vital Signs Temp Pulse Resp BP Pulse Ox O2 Del Method O2 Flow Rate 03/30/23 07:00 68 16 98 03/30/23 07:00 140/71 03/30/23 06:50 66 14 03/30/23 06:50 145/78 H 03/30/23 06:40 68 18 98 03/30/23 06:40 141/76 H 03/30/23 06:31 67 18 99 03/30/23 06:31 145/64 H 03/30/23 06:30 25 H 92 Nasal Cannula 2 03/30/23 06:20 71 27 H 99 03/30/23 06:20 144/79 H 03/30/23 06:10 65 16 99 03/30/23 06:10 154/64 H 03/30/23 06:00 67 18 99 03/30/23 06:00 163/83 H 03/30/23 05:56 166/81 H 03/30/23 05:56 68 18 99 03/30/23 05:53 176/84 H 03/30/23 05:53 72 18 03/30/23 05:52 85 03/30/23 05:40 69 13 100 03/30/23 05:40 122/59 L 03/30/23 05:30 67 9 L 99 03/30/23 05:30 130/61 03/30/23 05:20 63 14 96 03/30/23 05:20 137/69 03/30/23 05:10 66 18 96 03/30/23 05:10 130/63 03/30/23 05:00 72 34 H 96 03/30/23 05:00 129/61 03/30/23 04:52 113/66 03/30/23 04:52 71 19 99 03/30/23 04:51 64 20 99 03/30/23 04:51 69/44 L 03/30/23 04:50 64 23 99 03/30/23 04:50 72/43 L 03/30/23 04:47 58 L 24 99 03/30/23 04:40 70 17 96 03/30/23 04:37 72 16 97 03/30/23 04:37 100/57 L 03/30/23 04:32 94 Room Air 03/30/23 04:37 75 03/30/23 04:25 36.7 C 74 20 86/40 L 98 Room Air Laboratory Results Laboratory Results WBC 7.18 K/ul (4.8-10.8) 03/30/23 04:49 RBC 4.53 M/uL (4.70-6.10) L 03/30/23 04:49 Hgb 11.3 g/dl (14.0-18.0) L 03/30/23 04:49 POC Hgb 10.2 g/dl (14.0-18.0) L 03/30/23 05:07 Hct 35.3 % (42.0-52.0) L 03/30/23 04:49 POC Hct 30 % (42-52) L 03/30/23 05:07 MCV 77.9 fL (80.0-100.0) L 03/30/23 04:49 MCH 24.9 pg (25.0-34.0) L 03/30/23 04:49 MCHC 32.0 g/dL (32.0-36.0) 03/30/23 04:49 RDW Std Deviation 57.1 fL (36.4-46.3) H 03/30/23 04:49 RDW Coeff of Emily 20.8 % (11.5-14.5) H 03/30/23 04:49 Plt Count 202 K/uL (130-400) 03/30/23 04:49 Immature Gran % (Auto) 0.3 % 03/30/23 04:49 Neut % (Auto) 63.5 % 03/30/23 04:49 Lymph % (Auto) 23.0 % 03/30/23 04:49 Gila % (Auto) 9.6 % 03/30/23 04:49 Eos % (Auto) 2.8 % 03/30/23 04:49 Baso % (Auto) 0.8 % 03/30/23 04:49 Neut # (Auto) 4.56 K/uL (1.40-6.50) 03/30/23 04:49 Lymph # (Auto) 1.65 K/uL (1.20-3.40) 03/30/23 04:49 Gila # (Auto) 0.69 K/uL (0.11-0.59) H 03/30/23 04:49 Eos # (Auto) 0.20 K/uL (0.00-0.50) 03/30/23 04:49 Baso # (Auto) 0.06 K/uL (0.00-0.20) 03/30/23 04:49 Immature Gran # (Auto) 0.02 K/uL (0.01-0.20) 03/30/23 04:49 Polychromasia 2+ 03/30/23 04:49 Anisocytosis Present 03/30/23 04:49 PT 10.6 Seconds (9.0-12.0) 03/30/23 04:49 INR 1.0 (0.9-1.1) 03/30/23 04:49 APTT 23.7 Seconds (21.0-31.0) 03/30/23 04:49 PTT Ratio 0.8 03/30/23 04:49 POC Sodium 141 mmol/L (135-144) 03/30/23 05:07 Sodium 138 mmol/L (136-145) 03/30/23 04:49 POC Potassium 4.0 mmol/L (3.3-5.0) 03/30/23 05:07 Potassium 3.9 mmol/L (3.5-5.1) 03/30/23 04:49 POC Chloride 104 mmol/L (101-112) 03/30/23 05:07 Chloride 105 mmol/L (98-107) 03/30/23 04:49 Carbon Dioxide 28 mmol/L (21-32) 03/30/23 04:49 POC Total CO2 23 mmol/L (24-31) L 03/30/23 05:07 Anion Gap 5 (3-11) 03/30/23 04:49 POC Anion Gap 18.0 mmol/L (16-25) 03/30/23 05:07 POC BUN 26 mg/dl (7-18) H 03/30/23 05:07 BUN 28 mg/dl (6-23) H 03/30/23 04:49 Creatinine 1.52 mg/dl (0.6-1.4) H 03/30/23 04:49 POC Creatinine 1.5 mg/dl (0.6-1.3) H 03/30/23 05:07 Est Cr Clr Drug Dosing 50.1 ml/min 03/30/23 04:49 Est GFR ( Amer) 52.3 ml/min 03/30/23 04:49 Est GFR (Non-Af Amer) 45.1 ml/min 03/30/23 04:49 BUN/Creatinine Ratio 18.4 (10-20) 03/30/23 04:49 Glucose 146 mg/dl (70-99(Fasting)) H 03/30/23 04:49 POC Glucose (other) 139 mg/dl (70-99) H 03/30/23 05:07 Calcium 8.8 mg/dl (8.6-10.3) 03/30/23 04:49 POC Ioniz Calcium Pipo 1.13 mmol/l (1.12-1.32) 03/30/23 05:07 Magnesium 1.9 mg/dl (1.7-2.4) 03/30/23 04:49 Total Bilirubin 0.3 mg/dl (0.2-1.0) 03/30/23 04:49 AST 28 U/L (13-39) 03/30/23 04:49 ALT 30 U/L (7-52) 03/30/23 04:49 Alkaline Phosphatase 95 U/L (34-104) 03/30/23 04:49 Troponin I High Sens 6.3 pg/ml (0-20) 03/30/23 04:49 Total Protein 6.6 gm/dl (6.0-8.3) 03/30/23 04:49 Albumin 4.0 gm/dl (3.4-5.0) 03/30/23 04:49 Globulin 2.6 gm/dl (2.5-4.0) 03/30/23 04:49 Albumin/Globulin Ratio 1.5 (0.9-2) 03/30/23 04:49 Blood Type O Positive 03/30/23 04:49 Antibody Screen NEGATIVE 03/30/23 04:49 Diagnostic Findings Chest x-ray as per my interpretation borderline cardiomegaly EKG as per my interpretation : Rate 80, A-fib, normal axis, septal infarct, inferior infarct, PVCs
[2023-03-30] MEDS ORDERED: ACETAMINOPHEN 325 MG TAB PO STA (07:29)
[2023-03-30] MEDS ORDERED: oxyCODONE HCL IR 5 MG TAB (IMMEDIATE RELEASE) PO PRN (07:34)
[2023-03-30] MEDS ORDERED: PROMETHAZINE HCL 6.25 MG in SODIUM CHLORIDE 0.9% 50 ML IV PRN (07:34)
[2023-03-30] MEDS ORDERED: ACETAMINOPHEN 325 MG TAB PO PRN (07:34)
[2023-03-30] MEDS ORDERED: HYDROmorphone INJ 0.5 MG/0.5 ML SYR IV PRN (07:34)
[2023-03-30] MEDS ORDERED: traMADol HCL 50 MG TABLET PO PRN (07:45)
[2023-03-30] MEDS ORDERED: MAGNESIUM SULFATE / D5W 1 GM/100 ML BAG IV ONE (07:47)
[2023-03-30] MEDS ORDERED: NSS + 20MEQ KCL 20 MEQ/1,000 ML BAG IV ONE (07:48)
--- NOTE | 2023-03-30 08:01 | XRay Report ---
XR chest 1V portable HISTORY: tachypnea COMPARISON: Chest 10/08/2018. FINDINGS: No pneumothorax. No pleural fusions. No focal lung consolidations to suggest a pneumonia. N o evidence for pulmonary edema. The cardiac silhouette remains top normal in size. IMPRESSION: No acute process. ACT 112: Negative or not required by law. Electronically signed by: Marques Gunderson M.D. 03/30/2023 8:00 AM
[2023-03-30 08:40] LABS: Hematocrit (blood only) 29.8 % (42.0-52.0)
[2023-03-30] MEDS ORDERED: METOPROLOL TARTRATE 25 MG TAB PO SCH (09:00)
--- NOTE | 2023-03-30 09:20 | CT Scan Report ---
ABDOMEN AND PELVIS CT WITHOUT CONTRAST CT DOSE: 1233.10 mGy.cm HISTORY: Generalized abdominal pain. Rectal bleeding. TECHNIQUE: Multiaxial CT images of the abdomen and pelvis were performed without contrast. A dose lo wering technique was utilized adhering to the principles of ALARA. COMPARISON STUDY: Abdomen and pelvis CT 09/10/2013. FINDINGS: Subtle tree-in-bud nodular opacities within the base the right middle lobe. The left lung b ase is clear. No pneumoperitoneum. No pneumatosis. L4-5 posterior decompression and fusion with pedic le screws and rods. There is a small fat-containing umbilical hernia. Cholelithiasis. No gallbladder wall thickening. The unenhanced liver, adrenal glands, and pancreas are unremarkable. There are few p unctate calcified granulomas within the spleen. No renal or ureteral stones. No hydronephrosis. There is a 3 cm hypodense lesion within the left kidney. This is incompletely characters on this noncontra st study but statistically represents a cyst. Moderate calcified plaque within the normal caliber abd ominal aorta. No retroperitoneal or pelvic lymphadenopathy. Normal bladder. Extensive colonic diverti culosis. Mild pericolonic fat stranding at the mid descending colon best seen on image 136. This like ly represents a mild acute diverticulitis. No perforation or abscess. Normal appendix. No evidence fo r bowel obstruction. IMPRESSION: 1. Mild acute diverticulitis at the mid descending colon. No perforation or abscess. 2. No evidence for a bowel obstruction. 3. Cholelithiasis. No gallbladder wall thickening. 4. Additional findings as described above. ACT 112: Negative or not required by law. Electronically signed by: Marques Gunderson M.D. 03/30/2023 9:18 AM
--- NOTE | 2023-03-30 09:30 | Electrocardiogram Report ---
Test Reason : Blood Pressure : / mmHG Vent. Rate : 078 BPM Atrial Rate : 000 BPM P-R Int : 000 ms QRS Dur : 082 ms QT Int : 406 ms P-R-T Axes : 000 009 000 degrees QTc Int : 462 ms Normal sinus rhythm Premature atrial complexes Premature ventricular complexes Inferior infarct (cited on or before 08-JUL-2005) Cannot rule out Anterior infarct , age undetermined Abnormal ECG When compared with ECG of 08-OCT-2018 09:39, Minimal criteria for Anterior infarct are now Present Confirmed by Manolo Radford ([id number]) on 03/30/2023 9:29:46 AM Referred By: Priscila Meza Confirmed By:Manolo Radford
--- NOTE | 2023-03-30 09:30 | Electrocardiogram Report ---
Test Reason : Blood Pressure : / mmHG Vent. Rate : 069 BPM Atrial Rate : 069 BPM P-R Int : 194 ms QRS Dur : 088 ms QT Int : 402 ms P-R-T Axes : 085 -22 042 degrees QTc Int : 430 ms Sinus rhythm with occasional Premature ventricular complexes Inferior infarct (cited on or before 08-JUL-2005) Cannot rule out Anterior infarct (cited on or before 30-MAR-2023) Abnormal ECG When compared with ECG of 30-MAR-2023 05:00, (unconfirmed) T wave inversion no longer evident in Inferior leads Confirmed by Manolo Radford ([id number]) on 03/30/2023 9:30:00 AM Referred By: Priscila Meza Confirmed By:Manolo Radford
[2023-03-30] MEDS ORDERED: GLUCOSE 10 TAB/TUBE PO PRN (10:09)
[2023-03-30] MEDS ORDERED: GLUCAGON FOR INJ 1 MG VIAL SQ PRN (10:09)
[2023-03-30] MEDS ORDERED: DEXTROSE 50% 50 ML SYRINGE IV PRN (10:09)
[2023-03-30] MEDS ORDERED: CARBOHYDRATES FOR HYPOGLYCEMIA PO PRN (10:09)
[2023-03-30] MEDS ORDERED: GLUCOSE 40% GEL 15 GM TUBE PO PRN (10:09)
[2023-03-30] MEDS: rOPINIRole HCL 2 MG TABLET PO SCH ×3 (11:20→20:16)
[2023-03-30] MEDS: INSULIN ASPART PER UNIT CHARGE SC SCH ×4 (11:24→18:31)
[2023-03-30 14:12] LABS: Hematocrit (blood only) 27.1 % (42.0-52.0); Hemoglobin 8.8 g/dl (14.0-18.0)
--- NOTE | 2023-03-30 14:22 | Communication Note ---
Date of Service: March 30, 2023 Patient was seen and examined at bedside. 72-year-old male with PMH of CAD s/p stent, HTN, HLD, DM2 on Ozempic, CKD [baseline creatinine 1.5], chronic anemia [baseline hemoglobin 8-9], GERD/Hassan's esophagus, cochlear implant, past tobacco abuse presented to the ED 03/30 with complaints of recurrent bloody bowel movement mixed with black stools associated with lower abdominal pain. He denied fever or chills. Denied OTC NSAID intake. Was evaluated for GI bleed as an outpatient in PCP office recently, outpatient endoscopy was contemplated. Tentatively scheduled for endoscopy June 2023. 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 Admitting CTAP with mild acute diverticulitis at the mid descending colon, no perforation or abscess. Admitting hemoglobin of 12.5, trend H&H. Transfuse for hemoglobin less than 8 or for symptomatic anemia. N.p.o., pain management, nausea management, Protonix IV twice daily, IV fluid We will initiate Unasyn for mild diverticulitis. GI consulted, await recommendation. Caution with blood pressure medication with GI bleed. Await stool PCR. Aspirin on hold. Concern for new onset A-fib on EKG: Admitting EKG with not very clear baseline in V1 lead. Checking telemetry around the same time reveals P wave/regular rate/more PVCs. Patient in sinus rhythm. Echo reviewed. Other chronic medical conditions: Continue with/resume home meds as and when able. hx CAD status post stent valvular heart disease (mild MR/AR) hyperlipidemia on statin Rx DM 2 on Ozempic, well-controlled as of recent outpatient hemoglobin A1c of 5.7 last December 2022 CRI, creatinine at baseline past tobacco abuse DVT prophylaxis. SCDs Re: GI bleed DNR Please note the above document was generated using voice recognition software. It may contain grammatical, syntax or spelling errors. Any formal questions or concerns about the content, text or information contained within the body of this dictation should be directly addressed to the undersigned for clarification.
[2023-03-30] MEDS: AMPICILLIN/SULBACTAM SOD 3,000 MG in 0.9 % SODIUM CHLORIDE 100 ML IV SCH ×2 (14:56→20:18)
[2023-03-30] MEDS ORDERED: SODIUM CHLORIDE 0.9% 250 ML IV PRN (16:20)
[2023-03-30 16:44] LABS: Hematocrit (blood only) 25.7 % (42.0-52.0); Hemoglobin 8.4 g/dl (14.0-18.0)
[2023-03-30] MEDS ORDERED: Nursing to Pharmacy Communication SCH (16:45)
--- NOTE | 2023-03-30 17:07 | Communication Note ---
Date of Service: March 30, 2023 Chart reviewed, patient with rectal bleeding and drop in H/H, CT scan showed diverticulosis with acute diverticulitis, in view of overt GI bleeding, in ability for bowel prep and diverticulitis, recommend urgent consultation with Tertiary care center for IR guided embolization.
[2023-03-30] MEDS ORDERED: LOVASTATIN 20 MG TAB PO SCH (21:00)
[2023-03-30] MEDS ORDERED: PANTOprazole 40 MG in SYRINGE 0 ML IV SCH (21:00)
[2023-03-30 21:33] LABS: Hemoglobin 8.4 g/dl (14.0-18.0)
[2023-03-31] MEDS: INSULIN ASPART PER UNIT CHARGE SC SCH ×2 (00:12→00:14)
--- NOTE | 2023-04-04 07:50 | Coding Query ---
ANEMIA To promote full compliance with coding requirements relating to patient care, physician participation is requested in all cases of environmental analyst uncertainty. Please assist us with the question(s) below: Coding Question(s): The record reflects the following clinical findings: HGB 11.3 down to 8.4, HCT 35.3 down to 25. Transfused 1 unit RBCs If these findings are indicative of anemia, please specify the known or suspected type by placing an "X" within the parenthesis (x). If other, please document type. Examples are: (x ) Acute blood loss anemia ( ) Acute Postoperative blood loss anemia ( ) Acute postoperative anemia due to dilutional fluids ( ) Chronic blood loss anemia ( ) Anemia of chronic disease ( ) Aplastic anemia ( ) Anemia due to renal disease ( ) Anemia in neoplastic disease ( ) Iron deficient anemia ( ) Anemia, unspecified or other ( ) Other: (please specify) Thank you Rupali MO
== END 2023-03-31 01:24 | disposition short-term general hospital (02) | DRG 378 ==
LOC: ED 04:11 → EDINP 07:31 → 2S 10:09